=== PATIENT | female | born 1935 | race Caucasian/White ===

== ENCOUNTER → 2016-10-21 | Outpatient (CLI) | payer OTHER ==
[2015-12-30 18:50] VITALS: BP 160/90
[~2016-10-21] MED LIST: ACET-704 PO; ALBU18HF IH; ALPR0.5T PO; ALPR0.5T6 PO; CLON0.2T PO; CYCL5TAB PO; DILT120C2 PO; DOXY100C2 PO; GLIP10TA13 PO; HYDR-2867 PO; HYDR-2868 PO; METO1TAB7 PO; METO50TA2 PO; NYST1000 PO; PRED20TA PO; TIOT18CA IH; Tylenol PM PO
--- NOTE | 2016-10-21 10:47 | RAD ---
Bone Densitometry History: Ovarian failure, tobacco history, steroid use, white female. Findings: Bone Densitometry was performed with dual photon absorption of the lumbar spine and proximal right femur. Lumbar Spine: Bone density is 1.086 g/cm2 for L1-L4. T-score is -0.8. Right Femur: Bone density is 0.697 g/cm2. T-score is -2.5. Impression: 1. Osteoporosis of the right hip. 2. Bone mineral density of lumbar spine appears within normal limits. World Health Organization definition of osteoporosis and osteopenia for women: normal equals T score at or above -1.0 standard deviations; osteopenia equals T score between -1.0 and -2.5 standard deviations; osteoporosis equals T score at or below -2.5 standard deviations.
== END | disposition home or self-care (01) ==
LOC: DXRAD 09:57
PROVIDERS: ATTEND Family Medicine
DX: M81.0 Age-related osteoporosis without current pathological fracture (principal); I10 Essential (primary) hypertension
CPT/HCPCS: 77080

== ENCOUNTER → 2016-10-27 | Outpatient (CLI) | payer OTHER ==
[2015-12-30 18:50] VITALS: BP 160/90
--- NOTE | 2016-10-27 10:03 | RAD ---
Indication assess abdominal aortic aneurysm. Grayscale imaging was performed. The examination was targeted to the abdominal aorta. Note is made of a previous examination 09/17/2015. The proximal and mid abdominal aorta were seen the distal abdominal aorta was obscured by gas. The proximal abdominal aorta is dilated maximally to approximately 3.6 cm. The mid abdominal aorta approaches 3 cm. Again the distal abdominal aorta was obscured. Aneurysmal dilatation of the proximal abdominal aorta. The distal abdominal aorta was obscured. (The previous examination demonstrated dilatation of the distal abdominal aorta to approximately 3.9 cm). If clinically warranted additional evaluation of the aorta could be obtained with CT. IMPRESSION: The distal abdominal aorta was obscured.. Known aneurysm associated with the distal abdominal aorta not well demonstrated on this study.
== END | disposition home or self-care (01) ==
LOC: US 07:37
PROVIDERS: ATTEND Family Medicine
DX: I10 Essential (primary) hypertension (principal); I71.4 Abdominal aortic aneurysm, without rupture
CPT/HCPCS: 76770

== ENCOUNTER 2017-09-14 12:00 | Inpatient (IN) | payer MEDICARE, OTHER ==
[~2017-09-14] VITALS: Ht 149.9 cm; Wt 69.5 kg
[~2017-09-14 12:00] MED LIST changes: +CLON-276 PO; -CLON0.2T PO; -METO50TA2 PO; +METO50TA6 PO
[2017-09-14] MEDS ORDERED: IPRATRPIUM/ALBUTEROL 0.5/2.5MG 3 ML NEBU. NEB ONE (12:15)
[2017-09-14 12:41] LABS: BASO # 0.1 x10^3/uL (0.0-0.2); BASO % 1 % (0-3); EOS # 0.4 x10^3/uL (0.0-0.7); EOS % 4 % (0-3); HEMATOCRIT 39.1 % (36.0-47.0); HEMOGLOBIN 13.2 g/dL (12.0-15.5); LYMPH # 1.7 x10^3/uL (1.0-4.8); LYMPH % 17 % (24-48); MEAN CORPUSCULAR HEMOGLOBIN 31 pg (25-35); MEAN CORPUSCULAR HGB CONC 34 g/dL (31-37); MEAN CORPUSCULAR VOLUME 92 fL (79-100); MONO # 1.2 x10^3/uL (0.0-1.1); MONO % 12 % (0-9); NEUT # 6.7 x10^3uL (1.8-7.7); NEUT % 67 % (31-73); PLATELET COUNT 298 x10^3/uL (140-400); RED BLOOD COUNT 4.27 x10^6/uL (3.50-5.40); WHITE BLOOD COUNT 10.1 x10^3/uL (4.0-11.0)
[2017-09-14 12:55] LABS: ALBUMIN 3.5 g/dL (3.4-5.0); CALCIUM 9.2 mg/dL (8.5-10.1); CREATININE 0.7 mg/dL (0.6-1.0); DIRECT BILIRUBIN 0.1 mg/dL (0.0-0.2); GFR 80.3; POTASSIUM 4.1 mmol/L (3.5-5.1); TOTAL BILIRUBIN 0.3 mg/dL (0.2-1.0)
--- NOTE | 2017-09-14 12:55 | RAD ---
Single view chest 09/14/2017 Clinical indication: Shortness of air. COMPARISON: Two-view chest 08/06/2015, CTA chest 09/10/2015. FINDINGS: Cardiac and mediastinal silhouettes are unremarkable. No pleural effusion, pneumothorax or focal consolidation. IMPRESSION: No acute cardiopulmonary abnormality. Electronically signed by: Ish Neumann MD (09/14/2017 12:52 PM) [id number]
--- NOTE | 2017-09-14 13:12 | EKG ---
[address] [address] Test Date: 2017-09-14 Test Time: 12:14:57 Pat Name: KELLI COBB Department: Room: Gender: F Employee Benefits Insurance Agent: PRAFUL : [id number] Requested By: NORM SHERIFF Order Number: [id number] Reading MD: Measurements Intervals [place] Rate: 89 P: 56 MS: 142 QRS: 18 QRSD: 94 T: 61 QT: 342 QTc: 417 Interpretive Statements SINUS RHYTHM QRS(T) CONTOUR ABNORMALITY CONSIDER INFERIOR MYOCARDIAL DAMAGE POSSIBLY ABNORMAL ECG RI6.01 No previous ECG available for comparison
[2017-09-14] MEDS ORDERED: methylPREDNISolone SOD SUCC PF 125 MG/2 ML VIAL. IV ONE (13:30)
--- NOTE | 2017-09-14 13:33 | PHYS DOC ---
Past History Past Medical History: Anxiety, COPD, Hypertension, Hypothyroid, Other Past Surgical History: Hysterectomy, Other Alcohol Use: None Drug Use: None Adult General Chief Complaint Chief Complaint: SHORTNESS OF BREATH HPI HPI 82-year-old female with a history of high blood pressure and COPD along with diabetes presenting to the emergency department today with worsening shortness of breath. Her shortness of breath is worse with exertion increased when she lays down. It is improved with rest. She denies any pain in her chest or neck. She has a history of COPD and on September 02 on her primary care physician Dr. Macdonald who administered prednisone and antibiotics. She noticed mild improvement with these medications. She denies any chest pain fevers or chills. No specific timing. Baseline o2 of 2l nc. Past medical history high blood pressure, COPD, diabetes Allergies per EMR. Past surgical history: History of hernia repairs and hysterectomy Positive for smoking, negative for drinking or IV drug use. Review of systems is negative for abdominal pain nausea vomiting diaphoresis. She denies polyuria dysuria fevers. All other review of systems is negative unless otherwise noted in history of present illness. ED course: 82-year-old female presenting to the emergency department with worsening shortness of breath. On arrival, vital signs. On examination the patient is alert well-appearing nontoxic appearing. Her work of breathing is mildly increased. Lungs: Wheezing bilaterally with prolonged expiratory phase. Abdomen is soft nondistended nontender palpation without rebound tenderness or guarding. Regular rate and rhythm on cardiac auscultation. No pedal edema. No signs of DVT. Nontender venous system. Otherwise unremarkable exam. EKG obtained by myself and reviewed. Compared to previous on July 282015. Sinus rhythm with a regular rate. ST segments congruent. Not suggestive ACS. Chest x-ray obtained shows no acute cardiopulmonary process. Blood work shows mild hyperglycemia otherwise unremarkable. Troponin negative. Patient was given a nebulizer and IV Solu-Medrol in the emergency department. On reexamination she continues to feel shortness of breath and has increased oxygen requirement of 3. We will admit the patient for nebulizers and IV corticosteroids further evaluation treatment and monitoring. Dr. Macdonald the patient's primary care physician accepts the patient for admission. Review of Systems Review of Systems SEE ABOVE. Current Medications Current Medications Current Medications Medications (Trade) Dose Ordered Sig/Thalia Start Time Stop Time Status Last Admin Dose Admin Albuterol/ Ipratropium (Duoneb) 3 ml 1X ONCE 09/14/17 12:15 09/14/17 12:18 DC 09/14/17 12:29 3 ML Methylprednisolone Sodium Succinate (SOLU-Medrol 125MG VIAL) 125 mg 1X ONCE 09/14/17 13:30 09/14/17 13:31 UNV Allergies Allergies Allergies Coded Allergies Type Severity Reaction Last Updated Verified Penicillins Allergy Intermediate 09/14/17 Yes Pmpdzed-Jum-Mqa Reductase Inhibitor Allergy Unknown 09/14/17 Yes gabapentin Allergy Unknown 09/14/17 Yes mannitol Allergy Unknown 09/14/17 Yes tramadol Allergy Unknown 09/14/17 Yes water for injection,sterile Allergy Unknown 09/14/17 Yes zoledronic acid Allergy Unknown 09/14/17 Yes Physical Exam Physical Exam SEE ABOVE Constitutional: Well developed, well nourished, no acute distress, non-toxic appearance. [] HENT: Normocephalic, atraumatic, bilateral external ears normal, oropharynx moist, no oral exudates, nose normal. [] Eyes: PERRLA, EOMI, conjunctiva normal, no discharge. [] Neck: Normal range of motion, no tenderness, supple, no stridor. [] Cardiovascular:Heart rate regular rhythm, no murmur [] Lungs & Thorax: Wheezing bilaterally. Improved on second examination. Abdomen: Bowel sounds normal, soft, no tenderness, no masses, no pulsatile masses. [] Skin: Warm, dry, no erythema, no rash. [] Back: No tenderness, no CVA tenderness. [] Extremities: No tenderness, no cyanosis, no clubbing, ROM intact, no edema. [] Neurologic: Alert and oriented X 3, normal motor function, normal sensory function, no focal deficits noted. [] Psychologic: Affect normal, judgement normal, mood normal. [] Current Patient Data Vital Signs Vital Signs Date Time Temp Pulse Resp B/P (MAP) Pulse Ox O2 Delivery O2 Flow Rate FiO2 09/14/17 12:29 95 Nasal Cannula 2.0 09/14/17 12:15 98.4 102 24 Lab Results Laboratory Tests Test 09/14/17 12:22 White Blood Count 10.1 x10^3/uL (4.0-11.0) Red Blood Count 4.27 x10^6/uL (3.50-5.40) Hemoglobin 13.2 g/dL (12.0-15.5) Hematocrit 39.1 % (36.0-47.0) Mean Corpuscular Volume 92 fL (79-100) Mean Corpuscular Hemoglobin 31 pg (25-35) Mean Corpuscular Hemoglobin Concent 34 g/dL (31-37) Red Cell Distribution Width 14.0 % (11.5-14.5) Platelet Count 298 x10^3/uL (140-400) Neutrophils (%) (Auto) 67 % (31-73) Lymphocytes (%) (Auto) 17 % (24-48) L Monocytes (%) (Auto) 12 % (0-9) H Eosinophils (%) (Auto) 4 % (0-3) H Basophils (%) (Auto) 1 % (0-3) Neutrophils # (Auto) 6.7 x10^3uL (1.8-7.7) Lymphocytes # (Auto) 1.7 x10^3/uL (1.0-4.8) Monocytes # (Auto) 1.2 x10^3/uL (0.0-1.1) H Eosinophils # (Auto) 0.4 x10^3/uL (0.0-0.7) Basophils # (Auto) 0.1 x10^3/uL (0.0-0.2) Sodium Level 128 mmol/L (136-145) L Potassium Level 4.1 mmol/L (3.5-5.1) Chloride Level 93 mmol/L (98-107) L Carbon Dioxide Level 28 mmol/L (21-32) Anion Gap 7 (6-14) Blood Urea Nitrogen 13 mg/dL (7-20) Creatinine 0.7 mg/dL (0.6-1.0) Estimated GFR (Cockcroft-Gault) 80.3 Glucose Level 151 mg/dL (70-99) H Calcium Level 9.2 mg/dL (8.5-10.1) Total Bilirubin 0.3 mg/dL (0.2-1.0) Direct Bilirubin 0.1 mg/dL (0.0-0.2) Aspartate Amino Transferase (AST) 21 U/L (15-37) Alanine Aminotransferase (ALT) 35 U/L (14-59) Alkaline Phosphatase 105 U/L (46-116) Troponin I Quantitative < 0.017 ng/mL (0-0.055) TG-Sfj-O-Type Natriuretic Peptide 87 pg/mL (0-449) Total Protein 7.0 g/dL (6.4-8.2) Albumin 3.5 g/dL (3.4-5.0) Lipase 96 U/L (73-393) EKG EKG [] Radiology/Procedures Radiology/Procedures [] Course & Med Decision Making Course & Med Decision Making Pertinent Labs and Imaging studies reviewed. (See chart for details) [] Dragon Disclaimer Dragon Disclaimer This electronic medical record was generated, in whole or in part, using a voice recognition dictation system. Departure Departure: Impression: Primary Impression: COPD (chronic obstructive pulmonary disease) Disposition: ADMITTED INPATIENT Admitting Physician: Pramod Macdonald Condition: STABLE Referrals: PRAMOD MACDONALD MD (PCP) NORM SHERIFF MD Sep 14, 2017 13:33
[2017-09-14] MEDS ORDERED: ONDANSETRON PF 4 MG/2 ML VIAL. IV PRN ×2 (14:15→16:30)
[2017-09-14] MEDS ORDERED: IPRATRPIUM/ALBUTEROL 0.5/2.5MG 3 ML NEBU. NEB SCH (16:00)
[2017-09-14] MEDS ORDERED: ALBU18HF IH (16:13)
[2017-09-14] MEDS ORDERED: TIOT4MIS3 IH (16:13)
[2017-09-14] MEDS ORDERED: OXYC-323 PO (16:13)
[2017-09-14] MEDS ORDERED: DILT120C80 PO (16:13)
[2017-09-14] MEDS ORDERED: HYDR12.58 PO (16:13)
[2017-09-14] MEDS ORDERED: HYDR-2869 PO (16:13)
[2017-09-14 16:19] VITALS: BP 152/78
[2017-09-14] MEDS ORDERED: AZITHROMYCIN 250 MG TABLET. PO ONE (16:30)
[2017-09-14] MEDS ORDERED: 0.9 % SODIUM CHLORIDE 10 ML DISP.SYRIN. IV PRN (16:30)
[2017-09-14] MEDS ORDERED: diphenhydrAMINE 50 MG/ML VIAL IV PRN (16:30)
[2017-09-14] MEDS ORDERED: MAG HYDROX/AL HYDROX/SIMETH 30 ML ORAL.SUSP PO PRN (16:30)
[2017-09-14] MEDS ORDERED: DEXTROSE 50% 25 GM / 50ML DISP.SYRIN. IV PRN (16:30)
[2017-09-14] MEDS ORDERED: ELECTROLYTE (NON-ICU) PROTOCOL MC PRN (16:30)
[2017-09-14] MEDS ORDERED: PROMETHAZINE 12.5 MG in IV NORMAL SALINE 50ML 50 ML IV PRN (16:30)
[2017-09-14] MEDS ORDERED: CALCIUM CARBONATE 500 MG TAB.CHEW PO PRN (16:30)
[2017-09-14] MEDS ORDERED: PROCHLORPERAZINE 10 MG/2 ML VIAL. IV PRN (16:30)
--- NOTE | 2017-09-14 16:36 | PDOC1 ---
History of Present Illness Reason for Visit: SOA History of Present Illness Pt recently treated w/ outpatient prednisone and abx for COPD exacerbation. Was feeling better but when off steroids, started to feel worse. Over weekend, increasing SOA and leg cramps. Requiring more O2 than usual (usually wears 2.5 liters). Feeling better after IV solumedrol. Hx of hyperglycemia w/ steroids. Hx of chronic pain, takes chronic opioids. Uses Stiolto. Walks with a walker , lives independently. Denies fever, chest pain, abd pain, n/v, diarrhea, sore throat, earache, vision changes, BENSON, dizziness, rash, extremity weakness/ numbness, or confusion. Chief Complaint: SHORTNESS OF BREATH Allergies: Coded Allergies: Penicillins (Verified Allergy, Intermediate, 09/14/17) Noeeodv-Quh-Xie Reductase Inhibitor (Verified Allergy, Unknown, 09/14/17) gabapentin (Verified Allergy, Unknown, 09/14/17) mannitol (Verified Allergy, Unknown, 09/14/17) tramadol (Verified Allergy, Unknown, 09/14/17) water for injection,sterile (Verified Allergy, Unknown, 09/14/17) zoledronic acid (Verified Allergy, Unknown, 09/14/17) Past Medical History Cardiac: HTN Pulmonary: COPD Past Surgical History: Appendectomy, Cataract Removal (x2), Hernia Repair (x7) , Hysterectomy, Other (Carpal tunnel (left), trigger finger (left)) Past Social History Smoke: Quit (43 pack/year hx, quit 3 years ago) Alcohol: none Drugs: None Lives: Alone Domestic Violence: Neg Review of Systems Review Of Systems Fourteen system , review of systems has been reviewed. See HPI for pertinent positives and negative responses, other heaton all other systems are negative, non pertinent or non contributory Allergies: Coded Allergies: Penicillins (Verified Allergy, Intermediate, 09/14/17) Woqsfos-Wwk-Uni Reductase Inhibitor (Verified Allergy, Unknown, 09/14/17) gabapentin (Verified Allergy, Unknown, 09/14/17) mannitol (Verified Allergy, Unknown, 09/14/17) tramadol (Verified Allergy, Unknown, 09/14/17) water for injection,sterile (Verified Allergy, Unknown, 09/14/17) zoledronic acid (Verified Allergy, Unknown, 09/14/17) Medications Current Medications Albuterol/ Ipratropium (Duoneb) 3 ml 1X ONCE NEB Last administered on at 12:29; Start 09/14/17 at 12:15; Stop 09/14/17 at 12:18; Status DC Methylprednisolone Sodium Succinate (SOLU-Medrol 125MG VIAL) 125 mg 1X ONCE IV Last administered on 09/14/17at 14:08; Start 09/14/17 at 13:30; Stop 09/14/17 at 13:34; Status DC Ondansetron HCl (Zofran) 4 mg PRN Q4HRS PRN IV NAUSEA/VOMITING; Start 09/14/17 at 14:15; Stop 09/15/17 at 14:14 Albuterol/ Ipratropium (Duoneb) 3 ml RTQID NEB Last administered on 09/14/17at 16:12; Start 09/14/17 at 16:00; Stop 09/15/17 at 15:59 Azithromycin (Zithromax) 500 mg 1X ONCE PO ; Start 09/14/17 at 16:30; Stop at 16:31; Status UNV Active Scripts Active Reported Ventolin Hfa Inhaler (Albuterol Sulfate) 18 Gm Hfa.aer.ad 2 Puff IH PRN Q4HRS PRN LAST DOSE GIVEN: DATE: TIME: NEXT DOSE DUE: DATE: TIME: Diltiazem 24HR Cd (Diltiazem Hcl) 120 Mg Cap.er.24h 2 Cap PO DAILY LAST DOSE GIVEN: DATE: TIME: NEXT DOSE DUE: DATE: TIME: Hydralazine Hcl 50 Mg Tablet 1 Tab PO TID LAST DOSE GIVEN: DATE: TIME: NEXT DOSE DUE: DATE: TIME: Percocet 5-325 Mg Tablet (Oxycodone Hcl/Acetaminophen) 1 Each Tablet 0.5 Tab PO Q4HRS PRN LAST DOSE GIVEN: DATE: TIME: NEXT DOSE DUE: DATE: TIME: Stiolto Respimat Inhal [place] (Tiotropium Br/Olodaterol HCl) 4 Gm Mist.inhal 2 Puff IH DAILY LAST DOSE GIVEN: DATE: TIME: NEXT DOSE DUE: DATE: TIME: Hydrochlorothiazide Tablet (Hydrochlorothiazide) 12.5 Mg Tablet 1 Tab PO DAILY LAST DOSE GIVEN: DATE: TIME: NEXT DOSE DUE: DATE: TIME: Alprazolam 0.5 Mg Tablet 1 Tab PO HS LAST DOSE GIVEN: DATE: TIME: NEXT DOSE DUE: DATE: TIME: Xanax (Alprazolam) 0.5 Mg Tablet 0.5 Tab PO DAILY LAST DOSE GIVEN: DATE: TIME: NEXT DOSE DUE: DATE: TIME: Exam Vital Signs Vital Signs Date Time Temp Pulse Resp B/P (MAP) Pulse Ox O2 Delivery O2 Flow Rate FiO2 09/14/17 16:19 98.2 86 24 152/78 (102) 97 Nasal Cannula 2.0 General Appearance: Alert, Oriented X3, Cooperative, No acute distress HEENT: Atraumatic, PERRLA, EOMI, Mucous membr. moist/pink, Other (Neck supple, full ROM, no JVD< no LAD) Respiratory: Other (Resp effort non-labored, bilatera wheezes (expiratory), no crackles) Heart: Regular rate, Normal S1, Normal S2, No murmurs Abdominal: Normal bowel sounds, Soft, No tenderness, No hepatospenomegaly, No masses, Other (obese) Extremities: No edema, Normal pulses, No tenderness/swelling Skin: No rashes, No breakdown Neuro: Normal speech, Strength at 5/5 X4 ext, Normal tone, Sensation intact, Cranial nerves 3-12 NL, Reflexes 2+ Psych/Mental Status: Mental status NL, Mood NL Assessment/Plan Assessment/Plan 1. Acute on chronic respiratory failure: Pt on 4 liters O2, which is up from normal requirement. Comfortable after breathing treatment/steroids. Will continue nebs, IV steroids, abx, O2. Plan for a much longer taper this time. Monitor on telemetry. SSI while on steroids 2. HTN: Continue home BP meds, monitor for worsening on steroids. 3. Acute exacerbation of COPD: Continue current meds. See above. 4. DVT proph: Heparin. 5. Chronic pain: Continue home opioids. 6. Disp: Plan for 2 [place] stay. Pt has complex illness and early d/c could lead to worsening resp failure. COURSE Allergies Coded Allergies Type Severity Reaction Last Updated Verified Penicillins Allergy Intermediate 09/14/17 Yes Gmsiubd-Dmc-Vme Reductase Inhibitor Allergy Unknown 09/14/17 Yes gabapentin Allergy Unknown 09/14/17 Yes mannitol Allergy Unknown 09/14/17 Yes tramadol Allergy Unknown 09/14/17 Yes water for injection,sterile Allergy Unknown 09/14/17 Yes zoledronic acid Allergy Unknown 09/14/17 Yes Laboratory Tests Test 09/14/17 12:22 White Blood Count 10.1 x10^3/uL (4.0-11.0) Red Blood Count 4.27 x10^6/uL (3.50-5.40) Hemoglobin 13.2 g/dL (12.0-15.5) Hematocrit 39.1 % (36.0-47.0) Mean Corpuscular Volume 92 fL (79-100) Mean Corpuscular Hemoglobin 31 pg (25-35) Mean Corpuscular Hemoglobin Concent 34 g/dL (31-37) Red Cell Distribution Width 14.0 % (11.5-14.5) Platelet Count 298 x10^3/uL (140-400) Neutrophils (%) (Auto) 67 % (31-73) Lymphocytes (%) (Auto) 17 % (24-48) Monocytes (%) (Auto) 12 % (0-9) Eosinophils (%) (Auto) 4 % (0-3) Basophils (%) (Auto) 1 % (0-3) Neutrophils # (Auto) 6.7 x10^3uL (1.8-7.7) Lymphocytes # (Auto) 1.7 x10^3/uL (1.0-4.8) Monocytes # (Auto) 1.2 x10^3/uL (0.0-1.1) Eosinophils # (Auto) 0.4 x10^3/uL (0.0-0.7) Basophils # (Auto) 0.1 x10^3/uL (0.0-0.2) Sodium Level 128 mmol/L (136-145) Potassium Level 4.1 mmol/L (3.5-5.1) Chloride Level 93 mmol/L (98-107) Carbon Dioxide Level 28 mmol/L (21-32) Anion Gap 7 (6-14) Blood Urea Nitrogen 13 mg/dL (7-20) Creatinine 0.7 mg/dL (0.6-1.0) Estimated GFR (Cockcroft-Gault) 80.3 Glucose Level 151 mg/dL (70-99) Calcium Level 9.2 mg/dL (8.5-10.1) Total Bilirubin 0.3 mg/dL (0.2-1.0) Direct Bilirubin 0.1 mg/dL (0.0-0.2) Aspartate Amino Transf (AST/SGOT) 21 U/L (15-37) Alanine Aminotransferase (ALT/SGPT) 35 U/L (14-59) Alkaline Phosphatase 105 U/L (46-116) Troponin I Quantitative < 0.017 ng/mL (0-0.055) DG-Xmg-S-Type Natriuretic Peptide 87 pg/mL (0-449) Total Protein 7.0 g/dL (6.4-8.2) Albumin 3.5 g/dL (3.4-5.0) Lipase 96 U/L (73-393) Current Medications Medications (Trade) Dose Ordered Sig/Thalia Route PRN Reason Start Time Stop Time Status Last Admin Dose Admin Albuterol/ Ipratropium (Duoneb) 3 ml 1X ONCE NEB 09/14/17 12:15 09/14/17 12:18 DC 09/14/17 12:29 Methylprednisolone Sodium Succinate (SOLU-Medrol 125MG VIAL) 125 mg 1X ONCE IV 09/14/17 13:30 09/14/17 13:34 DC 09/14/17 14:08 Ondansetron HCl (Zofran) 4 mg PRN Q4HRS PRN IV NAUSEA/VOMITING 09/14/17 14:15 09/15/17 14:14 Albuterol/ Ipratropium (Duoneb) 3 ml RTQID NEB 09/14/17 16:00 09/15/17 15:59 09/14/17 16:12 Azithromycin (Zithromax) 500 mg 1X ONCE PO 09/14/17 16:30 09/14/17 16:31 UNV Vital Signs Date Time Temp Pulse Resp B/P (MAP) Pulse Ox O2 Delivery O2 Flow Rate FiO2 09/14/17 16:19 98.2 86 24 152/78 (102) 97 Nasal Cannula 2.0 Single view chest 09/14/2017 Clinical indication: Shortness of air. COMPARISON: Two-view chest 08/06/2015, CTA chest 09/10/2015. FINDINGS: Cardiac and mediastinal silhouettes are unremarkable. No pleural effusion, pneumothorax or focal consolidation. IMPRESSION: No acute cardiopulmonary abnormality. ADEBAYO MACDONALD MD Sep 14, 2017 16:36
[2017-09-14] MEDS: INSULIN ASPART 300 UNITS/3 ML INSULN.PEN SQ SCH (17:22)
[2017-09-14] MEDS: oxyCODONE/APAP 5/325 1 TAB TABLET PO PRN ×2 (19:17→23:52)
[2017-09-14 19:49] VITALS: BP 152/80
[2017-09-14] MEDS: DOCUSATE SODIUM 100 MG CAPSULE PO SCH (20:03)
[2017-09-14] MEDS: ALPRAZolam 0.5 MG TABLET PO SCH (20:04)
[2017-09-14] MEDS: diphenhydrAMINE HCL 25 MG CAPSULE PO PRN (20:04)
[2017-09-14] MEDS: HEPARIN PF for SUB-Q USE 5,000 UNIT/0.5 ML VIAL. SQ SCH (20:06)
[2017-09-14] MEDS: IPRATRPIUM/ALBUTEROL 0.5/2.5MG 3 ML NEBU. NEB SCH (20:46)
[2017-09-14] MEDS ORDERED: methylPREDNISolone SOD SUCC PF 125 MG/2 ML VIAL. IV SCH (21:00)
[2017-09-14 23:33] VITALS: BP 145/84
[2017-09-15] MEDS: HEPARIN PF for SUB-Q USE 5,000 UNIT/0.5 ML VIAL. SQ SCH ×3 (04:52→20:35)
[2017-09-15 05:31] VITALS: BP 148/82
--- NOTE | 2017-09-15 06:02 | PDOC ---
PROGRESS NOTES Assessment 1. Acute on chronic respiratory failure: Continue IV steroids, pt improving. Will taper to prednisone by tomorrow. Cont abx, nebs. Get nebulizer for discharge to home, pt does not have one. Cont O2. 2. HTN: Continue home BP meds, monitor for worsening on steroids. 3. Acute exacerbation of COPD: Continue current meds. See above. 4. DVT proph: Heparin. 5. Chronic pain: Continue home opioids, pt stable without side effects. 6. Disp: Pt improving. Hopeful for d/c tomorrow if all goes well. Problems: Plan of Care: see other orders Subjective Pt states she is feeling better. Took a shower this morning. Now needing a pain pill, as standing for the shower caused her legs to hurt. Denies fever, hemoptysis, chest pain, rash, diarrhea, n/v, or dizziness. Objective Vital Signs Date Time Temp Pulse Resp B/P (MAP) Pulse Ox O2 Delivery O2 Flow Rate FiO2 09/15/17 05:31 97.6 86 18 148/82 (104) 96 Nasal Cannula 2.0 Intake and Output 09/15/17 07:00 Intake Total 1330 ml Output Total 1150 ml Balance 180 ml Intake Oral 1330 ml Output Urine Total 1150 ml Abdomen: Normal bowel sounds, Soft, No tenderness, No masses Heart: Regular rate, Normal S1, Normal S2, No murmurs Extremities: No edema, Normal pulses, No tenderness/swelling General: Alert, Oriented X3, Cooperative, No acute distress HEENT: PERRLA, EOMI, Mucous membr. moist/pink Lungs: Other (Scattered expiratory wheezes, resp effort non-labored, no crackles, no rhonchi) Neck: No JVD, No LAD Neuro: Normal speech, Normal tone, Cranial nerves 3-12 NL Psych/Mental Status: Mental status NL, Mood NL Skin: No rashes, No breakdown Review of Relevant I have reviewed the following items lidya (where applicable) has been applied. Labs Laboratory Tests Test 09/14/17 12:22 09/14/17 17:07 09/14/17 17:50 09/14/17 20:29 White Blood Count 10.1 x10^3/uL (4.0-11.0) Red Blood Count 4.27 x10^6/uL (3.50-5.40) Hemoglobin 13.2 g/dL (12.0-15.5) Hematocrit 39.1 % (36.0-47.0) Mean Corpuscular Volume 92 fL (79-100) Mean Corpuscular Hemoglobin 31 pg (25-35) Mean Corpuscular Hemoglobin Concent 34 g/dL (31-37) Red Cell Distribution Width 14.0 % (11.5-14.5) Platelet Count 298 x10^3/uL (140-400) Neutrophils (%) (Auto) 67 % (31-73) Lymphocytes (%) (Auto) 17 % (24-48) Monocytes (%) (Auto) 12 % (0-9) Eosinophils (%) (Auto) 4 % (0-3) Basophils (%) (Auto) 1 % (0-3) Neutrophils # (Auto) 6.7 x10^3uL (1.8-7.7) Lymphocytes # (Auto) 1.7 x10^3/uL (1.0-4.8) Monocytes # (Auto) 1.2 x10^3/uL (0.0-1.1) Eosinophils # (Auto) 0.4 x10^3/uL (0.0-0.7) Basophils # (Auto) 0.1 x10^3/uL (0.0-0.2) Sodium Level 128 mmol/L (136-145) Potassium Level 4.1 mmol/L (3.5-5.1) Chloride Level 93 mmol/L (98-107) Carbon Dioxide Level 28 mmol/L (21-32) Anion Gap 7 (6-14) Blood Urea Nitrogen 13 mg/dL (7-20) Creatinine 0.7 mg/dL (0.6-1.0) Estimated GFR (Cockcroft-Gault) 80.3 Glucose Level 151 mg/dL (70-99) Calcium Level 9.2 mg/dL (8.5-10.1) Total Bilirubin 0.3 mg/dL (0.2-1.0) Direct Bilirubin 0.1 mg/dL (0.0-0.2) Aspartate Amino Transf (AST/SGOT) 21 U/L (15-37) Alanine Aminotransferase (ALT/SGPT) 35 U/L (14-59) Alkaline Phosphatase 105 U/L (46-116) Troponin I Quantitative < 0.017 ng/mL (0-0.055) < 0.017 ng/mL (0-0.055) DH-Mtc-P-Type Natriuretic Peptide 87 pg/mL (0-449) Total Protein 7.0 g/dL (6.4-8.2) Albumin 3.5 g/dL (3.4-5.0) Lipase 96 U/L (73-393) Glucose (Fingerstick) 205 mg/dL (70-99) 227 mg/dL (70-99) Test 09/14/17 20:55 Troponin I Quantitative < 0.017 ng/mL (0-0.055) Medications Current Medications Albuterol/ Ipratropium (Duoneb) 3 ml 1X ONCE NEB Last administered on at 12:29; Start 09/14/17 at 12:15; Stop 09/14/17 at 12:18; Status DC Methylprednisolone Sodium Succinate (SOLU-Medrol 125MG VIAL) 125 mg 1X ONCE IV Last administered on 09/14/17at 14:08; Start 09/14/17 at 13:30; Stop 09/14/17 at 13:34; Status DC Ondansetron HCl (Zofran) 4 mg PRN Q4HRS PRN IV NAUSEA/VOMITING; Start 09/14/17 at 14:15; Stop 09/15/17 at 14:14; Status Cancel Albuterol/ Ipratropium (Duoneb) 3 ml RTQID NEB Last administered on 09/14/17at 16:12; Start 09/14/17 at 16:00; Stop 09/14/17 at 18:01; Status DC Sodium Chloride (Normal Saline Flush) 3 ml PRN DAILY PRN IV AFTER MEDS AND BLOOD DRAWS; Start 09/14/17 at 16:30 Docusate Sodium (Colace) 100 mg BID PO Last administered on 09/14/17at 20:03; Start 09/14/17 at 21:00 Al Hydroxide/Mg Hydroxide (Mylanta Plus Xs) 30 ml PRN Q3HRS PRN PO HEARTBURN / GAS; Start 09/14/17 at 16:30 Calcium Carbonate/ Glycine (Tums) 500 mg PRN Q3HRS PRN PO HEARTBURN / GAS; Start 09/14/17 at 16:30 Info (Non-Icu Electrolyte Protocol) 1 ea CONT PRN PRN MC SEE COMMENTS; Start at 16:30 Heparin Sodium (Porcine) (Heparin Sq) 5,000 unit Q8HRS SQ Last administered on 09/14/17at 20:06; Start 09/14/17 at 22:00 Prochlorperazine Edisylate (Compazine) 10 mg PRN Q4HRS PRN IV NAUSEA/VOMITING; Start 09/14/17 at 16:30 Promethazine HCl 12.5 mg/Sodium Chloride 50.5 ml @ 100 mls/hr PRN Q6HRS PRN IV NAUSEA/VOMITING; Start 09/14/17 at 16:30 Ondansetron HCl (Zofran) 4 mg PRN Q8HRS PRN IV NAUSEA/VOMITING; Start 09/14/17 at 16:30 Diphenhydramine HCl (Benadryl) 25 mg PRN Q6HRS PRN PO SEE COMMENTS Last administered on 09/14/17at 20:04; Start 09/14/17 at 16:30 Diphenhydramine HCl (Benadryl) 25 mg PRN Q6HRS PRN IV SEE COMMENTS; Start 09/14 at 16:30 Insulin Aspart (NovoLOG) 0-5 UNITS TIDAC SQ Last administered on 09/14/17at 17: 22; Start 09/14/17 at 16:30 Dextrose 12.5 gm PRN Q15MIN PRN IV SEE COMMENTS; Start 09/14/17 at 16:30 Methylprednisolone Sodium Succinate (SOLU-Medrol 125MG VIAL) 125 mg Q12HR IV Last administered on 09/14/17at 20:03; Start 09/14/17 at 21:00 Albuterol/ Ipratropium (Duoneb) 3 ml RTQID NEB Last administered on 09/14/17at 20:46; Start 09/14/17 at 20:00 Azithromycin (Zithromax) 500 mg 1X ONCE PO Last administered on 09/14/17at 17: 06; Start 09/14/17 at 16:30; Stop 09/14/17 at 16:34; Status DC Alprazolam (Xanax) 0.5 mg HS PO Last administered on 09/14/17at 20:04; Start at 21:00 Alprazolam (Xanax) 0.25 mg DAILY PO ; Start 09/15/17 at 09:00 Diltiazem HCl (Cardizem 24hr Cd) 240 mg DAILY PO ; Start 09/15/17 at 09:00 Hydralazine HCl (Apresoline) 50 mg TID PO Last administered on 09/14/17at 20:04 ; Start 09/14/17 at 21:00 Oxycodone/ Acetaminophen (Percocet 5/325) 0.5 tab PRN Q4HRS PRN PO PAIN Last administered on 09/14/17at 23:52; Start 09/14/17 at 18:00 Hydroxyzine HCl (Atarax) 25 mg PRN QHS PRN PO ITCHING; Start 09/14/17 at 18:00 Active Scripts Active Reported Ventolin Hfa Inhaler (Albuterol Sulfate) 18 Gm Hfa.aer.ad 2 Puff IH PRN Q4HRS PRN LAST DOSE GIVEN: DATE: TIME: NEXT DOSE DUE: DATE: TIME: Diltiazem 24HR Cd (Diltiazem Hcl) 120 Mg Cap.er.24h 2 Cap PO DAILY LAST DOSE GIVEN: DATE: TIME: NEXT DOSE DUE: DATE: TIME: Hydralazine Hcl 50 Mg Tablet 1 Tab PO TID LAST DOSE GIVEN: DATE: TIME: NEXT DOSE DUE: DATE: TIME: Percocet 5-325 Mg Tablet (Oxycodone Hcl/Acetaminophen) 1 Each Tablet 0.5 Tab PO Q4HRS PRN LAST DOSE GIVEN: DATE: TIME: NEXT DOSE DUE: DATE: TIME: Stiolto Respimat Inhal [place] (Tiotropium Br/Olodaterol HCl) 4 Gm Mist.inhal 2 Puff IH DAILY LAST DOSE GIVEN: DATE: TIME: NEXT DOSE DUE: DATE: TIME: Hydrochlorothiazide Tablet (Hydrochlorothiazide) 12.5 Mg Tablet 1 Tab PO DAILY LAST DOSE GIVEN: DATE: TIME: NEXT DOSE DUE: DATE: TIME: Alprazolam 0.5 Mg Tablet 1 Tab PO HS LAST DOSE GIVEN: DATE: TIME: NEXT DOSE DUE: DATE: TIME: Xanax (Alprazolam) 0.5 Mg Tablet 0.5 Tab PO DAILY LAST DOSE GIVEN: DATE: TIME: NEXT DOSE DUE: DATE: TIME: Vitals/I & O Vital Sign - Last 24 Hours 09/14/17 09/14/17 09/14/17 09/14/17 12:15 12:29 12:36 13:06 Temp 98.4 Pulse 102 91 89 Resp 24 24 24 B/P (MAP) 138/73 (94) 139/70 (93) Pulse Ox 94 95 91 87 O2 Delivery Nasal Cannula Nasal Cannula Nasal Cannula Nasal Cannula O2 Flow Rate 3.0 2.0 3.0 3.0 09/14/17 09/14/17 09/14/17 09/14/17 14:52 15:40 16:12 16:19 Temp 98.2 Pulse 99 91 86 Resp 20 22 24 B/P (MAP) 140/77 (98) 152/78 (102) Pulse Ox 93 96 97 97 O2 Delivery Nasal Cannula Nasal Cannula Nasal Cannula O2 Flow Rate 3.0 3.0 2.0 2.0 09/14/17 09/14/17 09/14/17 09/14/17 17:37 19:15 19:17 19:49 Temp 98.7 Pulse 102 Resp 20 22 B/P (MAP) 152/80 (104) Pulse Ox 96 O2 Delivery Nasal Cannula Nasal Cannula Nasal Cannula Nasal Cannula O2 Flow Rate 3.0 3.0 3.0 2.0 09/14/17 09/14/17 09/14/17 09/14/17 20:04 20:20 20:49 23:33 Temp 97.9 Pulse 102 104 Resp 20 20 B/P (MAP) 152/80 145/84 (104) Pulse Ox 97 96 O2 Delivery Nasal Cannula Nasal Cannula O2 Flow Rate 2.5 2.0 09/14/17 09/15/17 09/15/17 09/15/17 23:52 00:55 05:28 05:31 Temp 97.6 Pulse 86 Resp 18 18 B/P (MAP) 148/82 (104) Pulse Ox 96 96 O2 Delivery Nasal Cannula Nasal Cannula Nasal Cannula Nasal Cannula O2 Flow Rate 3.0 3.0 2.5 2.0 Intake and Output 09/14/17 09/14/17 09/15/17 15:00 23:00 07:00 Intake Total 630 ml 700 ml Output Total 600 ml 550 ml Balance 30 ml 150 ml ADEBAYO MACDONALD MD Sep 15, 2017 06:02
[2017-09-15] MEDS: oxyCODONE/APAP 5/325 1 TAB TABLET PO PRN ×3 (06:03→20:28)
[2017-09-15] MEDS: IPRATRPIUM/ALBUTEROL 0.5/2.5MG 3 ML NEBU. NEB SCH ×4 (06:05→22:33)
[2017-09-15 06:26] LABS: CALCIUM 8.8 mg/dL (8.5-10.1); GFR 53.2; POTASSIUM 4.4 mmol/L (3.5-5.1)
[2017-09-15 06:31] LABS: BASO % 0 % (0-3); EOS % 0 % (0-3); HEMATOCRIT 37.3 % (36.0-47.0); HEMOGLOBIN 12.8 g/dL (12.0-15.5); LYMPH # 0.9 x10^3/uL (1.0-4.8); LYMPH % 9 % (24-48); MEAN CORPUSCULAR HEMOGLOBIN 31 pg (25-35); MEAN CORPUSCULAR HGB CONC 34 g/dL (31-37); MEAN CORPUSCULAR VOLUME 91 fL (79-100); MONO # 0.1 x10^3/uL (0.0-1.1); MONO % 1 % (0-9); NEUT # 9.1 x10^3uL (1.8-7.7); NEUT % 90 % (31-73); PLATELET COUNT 298 x10^3/uL (140-400); RED BLOOD COUNT 4.12 x10^6/uL (3.50-5.40); RED CELL DISTRIBUTION WIDTH 13.7 % (11.5-14.5); WHITE BLOOD COUNT 10.1 x10^3/uL (4.0-11.0)
[2017-09-15] MEDS: IV NORMAL SALINE 1,000ML 1,000 ML IV SCH ×2 (07:20→17:47)
[2017-09-15] MEDS: methylPREDNISolone SOD SUCC PF 125 MG/2 ML VIAL. IV SCH (08:17)
[2017-09-15] MEDS: DOCUSATE SODIUM 100 MG CAPSULE PO SCH ×2 (08:20→20:28)
[2017-09-15] MEDS: ALPRAZolam 0.25 MG TABLET PO SCH (08:21)
[2017-09-15] MEDS: INSULIN ASPART 300 UNITS/3 ML INSULN.PEN SQ SCH ×3 (08:31→17:52)
[2017-09-15 10:42] VITALS: BP 154/82
[2017-09-15] MEDS ORDERED: BENZOCAINE/MENTHOL LOZNGE 18'S BOX. PO PRN (11:45)
[2017-09-15 13:18] LABS: CALCIUM 8.5 mg/dL (8.5-10.1); GFR 53.2; POTASSIUM 3.8 mmol/L (3.5-5.1)
[2017-09-15 14:20] VITALS: BP 133/71
[2017-09-15 19:50] VITALS: BP 150/76
[2017-09-15] MEDS: hydrOXYzine HCL 25 MG TABLET PO PRN (20:28)
[2017-09-15] MEDS: ALPRAZolam 0.5 MG TABLET PO SCH (20:29)
[2017-09-15] MEDS: diphenhydrAMINE HCL 25 MG CAPSULE PO PRN (20:29)
[2017-09-15 23:22] VITALS: BP 146/87
[2017-09-16] MEDS: HEPARIN PF for SUB-Q USE 5,000 UNIT/0.5 ML VIAL. SQ SCH ×3 (06:00→20:39)
[2017-09-16] MEDS: IPRATRPIUM/ALBUTEROL 0.5/2.5MG 3 ML NEBU. NEB SCH ×4 (06:02→21:26)
[2017-09-16 06:29] VITALS: BP 145/83
[2017-09-16 06:59] LABS: CREATININE 0.8 mg/dL (0.6-1.0); GFR 68.8; POTASSIUM 4.1 mmol/L (3.5-5.1)
[2017-09-16] MEDS: DOCUSATE SODIUM 100 MG CAPSULE PO SCH ×2 (08:20→20:36)
[2017-09-16] MEDS: methylPREDNISolone SOD SUCC PF 125 MG/2 ML VIAL. IV SCH (08:20)
[2017-09-16] MEDS: ALPRAZolam 0.25 MG TABLET PO SCH (08:23)
[2017-09-16] MEDS: INSULIN ASPART 300 UNITS/3 ML INSULN.PEN SQ SCH ×3 (08:36→16:57)
[2017-09-16 11:13] VITALS: BP 136/78
--- NOTE | 2017-09-16 13:15 | PDOC ---
PROGRESS NOTES Assessment . Acute on chronic respiratory failure: Continue IV steroids, nebs, abx. Taper to prednisone at d/c. Get nebulizer for discharge to home, pt does not have one. Cont O2. Pt wishes to change O2 to same company as nebulizer. Check BNP and CXR today, concern for excess fluid intake, 3 liters intake yesterday. 2. HTN: Continue home BP meds, monitor for worsening on steroids. 3. Acute exacerbation of COPD: Continue current meds. See above. 4. DVT proph: Heparin. 5. Chronic pain: Continue home opioids, pt stable without side effects. 6. Disp: Pt feeling worse today, more SOA, denies chest pain or fever. Very wheezy on exam. Will check CXR and BNP. Diurese gently. Monitor Na/K+. Give 40 meq KCL x 1. Problems: Plan of Care: see other orders Subjective Pt states she slept "very well" last night with the Vistaril. Unfortunately, she feels a little more SOA today. Pt is still on IVF, they were not stopped yesterday evening. Pt eating well. Voiding ok. Denies fever, chest pain, sputum production, rash, diarrhea, or n/v. Objective Vital Signs Date Time Temp Pulse Resp B/P (MAP) Pulse Ox O2 Delivery O2 Flow Rate FiO2 09/16/17 11:13 98.0 100 18 136/78 (97) 95 Nasal Cannula 2.5 Intake and Output 09/16/17 07:00 Intake Total 3038.52 ml Balance 3038.52 ml Intake Oral 860 ml IV Total 2178.52 ml # Voids 5 Abdomen: Soft, No tenderness, No hepatospenomegaly, No masses Heart: Regular rate, Normal S1, Normal S2, No murmurs Extremities: Normal pulses, No tenderness/swelling, Other (Trace BLE edema) General: Alert, Oriented X3, Cooperative, mild distress HEENT: PERRLA, EOMI, Mucous membr. moist/pink Lungs: Other (Slightly tachypneic, no retractions. Diffuse insp/exp wheezes. ) Neck: No JVD Neuro: Normal speech, Normal tone, Cranial nerves 3-12 NL Psych/Mental Status: Mental status NL, Mood NL Skin: No rashes, No breakdown Review of Relevant I have reviewed the following items lidya (where applicable) has been applied. Labs Laboratory Tests Test 09/14/17 17:07 09/14/17 17:50 09/14/17 20:29 09/14/17 20:55 Glucose (Fingerstick) 205 mg/dL (70-99) 227 mg/dL (70-99) Troponin I Quantitative < 0.017 ng/mL (0-0.055) < 0.017 ng/mL (0-0.055) Test 09/15/17 05:35 09/15/17 07:36 09/15/17 11:40 09/15/17 13:00 White Blood Count 10.1 x10^3/uL (4.0-11.0) Red Blood Count 4.12 x10^6/uL (3.50-5.40) Hemoglobin 12.8 g/dL (12.0-15.5) Hematocrit 37.3 % (36.0-47.0) Mean Corpuscular Volume 91 fL (79-100) Mean Corpuscular Hemoglobin 31 pg (25-35) Mean Corpuscular Hemoglobin Concent 34 g/dL (31-37) Red Cell Distribution Width 13.7 % (11.5-14.5) Platelet Count 298 x10^3/uL (140-400) Neutrophils (%) (Auto) 90 % (31-73) Lymphocytes (%) (Auto) 9 % (24-48) Monocytes (%) (Auto) 1 % (0-9) Eosinophils (%) (Auto) 0 % (0-3) Basophils (%) (Auto) 0 % (0-3) Neutrophils # (Auto) 9.1 x10^3uL (1.8-7.7) Lymphocytes # (Auto) 0.9 x10^3/uL (1.0-4.8) Monocytes # (Auto) 0.1 x10^3/uL (0.0-1.1) Eosinophils # (Auto) 0.0 x10^3/uL (0.0-0.7) Basophils # (Auto) 0.0 x10^3/uL (0.0-0.2) Sodium Level 125 mmol/L (136-145) 127 mmol/L (136-145) Potassium Level 4.4 mmol/L (3.5-5.1) 3.8 mmol/L (3.5-5.1) Chloride Level 89 mmol/L (98-107) 89 mmol/L (98-107) Carbon Dioxide Level 27 mmol/L (21-32) 26 mmol/L (21-32) Anion Gap 9 (6-14) 12 (6-14) Blood Urea Nitrogen 19 mg/dL (7-20) 19 mg/dL (7-20) Creatinine 1.0 mg/dL (0.6-1.0) 1.0 mg/dL (0.6-1.0) Estimated GFR (Cockcroft-Gault) 53.2 53.2 Glucose Level 212 mg/dL (70-99) 295 mg/dL (70-99) Calcium Level 8.8 mg/dL (8.5-10.1) 8.5 mg/dL (8.5-10.1) Glucose (Fingerstick) 228 mg/dL (70-99) 245 mg/dL (70-99) Test 09/15/17 16:45 09/15/17 20:34 09/16/17 06:00 09/16/17 07:23 Glucose (Fingerstick) 265 mg/dL (70-99) 233 mg/dL (70-99) 206 mg/dL (70-99) Sodium Level 134 mmol/L (136-145) Potassium Level 4.1 mmol/L (3.5-5.1) Chloride Level 98 mmol/L (98-107) Carbon Dioxide Level 29 mmol/L (21-32) Anion Gap 7 (6-14) Blood Urea Nitrogen 16 mg/dL (7-20) Creatinine 0.8 mg/dL (0.6-1.0) Estimated GFR (Cockcroft-Gault) 68.8 Glucose Level 183 mg/dL (70-99) Calcium Level 8.0 mg/dL (8.5-10.1) Test 09/16/17 11:21 Glucose (Fingerstick) 236 mg/dL (70-99) Medications Current Medications Albuterol/ Ipratropium (Duoneb) 3 ml 1X ONCE NEB Last administered on at 12:29; Start 09/14/17 at 12:15; Stop 09/14/17 at 12:18; Status DC Methylprednisolone Sodium Succinate (SOLU-Medrol 125MG VIAL) 125 mg 1X ONCE IV Last administered on 09/14/17at 14:08; Start 09/14/17 at 13:30; Stop 09/14/17 at 13:34; Status DC Ondansetron HCl (Zofran) 4 mg PRN Q4HRS PRN IV NAUSEA/VOMITING; Start 09/14/17 at 14:15; Stop 09/15/17 at 14:14; Status Cancel Albuterol/ Ipratropium (Duoneb) 3 ml RTQID NEB Last administered on 09/14/17at 16:12; Start 09/14/17 at 16:00; Stop 09/14/17 at 18:01; Status DC Sodium Chloride (Normal Saline Flush) 3 ml PRN DAILY PRN IV AFTER MEDS AND BLOOD DRAWS; Start 09/14/17 at 16:30 Docusate Sodium (Colace) 100 mg BID PO Last administered on 09/16/17at 08:20; Start 09/14/17 at 21:00 Al Hydroxide/Mg Hydroxide (Mylanta Plus Xs) 30 ml PRN Q3HRS PRN PO HEARTBURN / GAS; Start 09/14/17 at 16:30 Calcium Carbonate/ Glycine (Tums) 500 mg PRN Q3HRS PRN PO HEARTBURN / GAS; Start 09/14/17 at 16:30 Info (Non-Icu Electrolyte Protocol) 1 ea CONT PRN PRN MC SEE COMMENTS; Start at 16:30 Heparin Sodium (Porcine) (Heparin Sq) 5,000 unit Q8HRS SQ Last administered on 09/15/17at 20:35; Start 09/14/17 at 22:00 Prochlorperazine Edisylate (Compazine) 10 mg PRN Q4HRS PRN IV NAUSEA/VOMITING; Start 09/14/17 at 16:30 Promethazine HCl 12.5 mg/Sodium Chloride 50.5 ml @ 100 mls/hr PRN Q6HRS PRN IV NAUSEA/VOMITING; Start 09/14/17 at 16:30 Ondansetron HCl (Zofran) 4 mg PRN Q8HRS PRN IV NAUSEA/VOMITING; Start 09/14/17 at 16:30 Diphenhydramine HCl (Benadryl) 25 mg PRN Q6HRS PRN PO SEE COMMENTS Last administered on 09/15/17at 20:29; Start 09/14/17 at 16:30 Diphenhydramine HCl (Benadryl) 25 mg PRN Q6HRS PRN IV SEE COMMENTS; Start 09/14 at 16:30 Insulin Aspart (NovoLOG) 0-5 UNITS TIDAC SQ Last administered on 09/16/17at 12: 23; Start 09/14/17 at 16:30 Dextrose 12.5 gm PRN Q15MIN PRN IV SEE COMMENTS; Start 09/14/17 at 16:30 Methylprednisolone Sodium Succinate (SOLU-Medrol 125MG VIAL) 125 mg Q12HR IV Last administered on 09/14/17at 20:03; Start 09/14/17 at 21:00; Stop 09/15/17 at 06:03; Status DC Albuterol/ Ipratropium (Duoneb) 3 ml RTQID NEB Last administered on 09/16/17at 10:47; Start 09/14/17 at 20:00 Azithromycin (Zithromax) 500 mg 1X ONCE PO Last administered on 09/14/17at 17: 06; Start 09/14/17 at 16:30; Stop 09/14/17 at 16:34; Status DC Alprazolam (Xanax) 0.5 mg HS PO Last administered on 09/15/17 20:29; Start at 21:00 Alprazolam (Xanax) 0.25 mg DAILY PO Last administered on 09/16/17at 08:23; Start 09/15/17 at 09:00 Diltiazem HCl (Cardizem 24hr Cd) 240 mg DAILY PO Last administered on at 08:20; Start 09/15/17 at 09:00 Hydralazine HCl (Apresoline) 50 mg TID PO Last administered on 09/16/17at 08:21 ; Start 09/14/17 at 21:00 Oxycodone/ Acetaminophen (Percocet 5/325) 0.5 tab PRN Q4HRS PRN PO PAIN Last administered on 09/15/17at 20:28; Start 09/14/17 at 18:00 Hydroxyzine HCl (Atarax) 25 mg PRN QHS PRN PO ITCHING Last administered on 3/20 /18at 20:28; Start 09/14/17 at 18:00 Methylprednisolone Sodium Succinate (SOLU-Medrol 125MG VIAL) 125 mg DAILY IV Last administered on 09/16/17at 08:20; Start 09/15/17 at 09:00 Sodium Chloride 1,000 ml @ 100 mls/hr Q10H IV Last administered on 09/15/17at 17:47; Start 09/15/17 at 07:00; Stop 09/15/17 at 17:01; Status DC Throat Lozenges (Cepacol Sore Throat Lozenge) 1 [place]elin PRN Q2HR PRN PO SORE THROAT Last administered on 09/15/17at 12:11; Start 09/15/17 at 11:45 Active Scripts Active Reported Ventolin Hfa Inhaler (Albuterol Sulfate) 18 Gm Hfa.aer.ad 2 Puff IH PRN Q4HRS PRN LAST DOSE GIVEN: DATE: TIME: NEXT DOSE DUE: DATE: TIME: Diltiazem 24HR Cd (Diltiazem Hcl) 120 Mg Cap.er.24h 2 Cap PO DAILY LAST DOSE GIVEN: DATE: TIME: NEXT DOSE DUE: DATE: TIME: Hydralazine Hcl 50 Mg Tablet 1 Tab PO TID LAST DOSE GIVEN: DATE: TIME: NEXT DOSE DUE: DATE: TIME: Percocet 5-325 Mg Tablet (Oxycodone Hcl/Acetaminophen) 1 Each Tablet 0.5 Tab PO Q4HRS PRN LAST DOSE GIVEN: DATE: TIME: NEXT DOSE DUE: DATE: TIME: Stiolto Respimat Inhal [place] (Tiotropium Br/Olodaterol HCl) 4 Gm Mist.inhal 2 Puff IH DAILY LAST DOSE GIVEN: DATE: TIME: NEXT DOSE DUE: DATE: TIME: Hydrochlorothiazide Tablet (Hydrochlorothiazide) 12.5 Mg Tablet 1 Tab PO DAILY LAST DOSE GIVEN: DATE: TIME: NEXT DOSE DUE: DATE: TIME: Alprazolam 0.5 Mg Tablet 1 Tab PO HS LAST DOSE GIVEN: DATE: TIME: NEXT DOSE DUE: DATE: TIME: Xanax (Alprazolam) 0.5 Mg Tablet 0.5 Tab PO DAILY LAST DOSE GIVEN: DATE: TIME: NEXT DOSE DUE: DATE: TIME: Vitals/I & O Vital Sign - Last 24 Hours 09/15/17 09/15/17 09/15/17 09/15/17 14:17 14:18 14:20 15:40 Temp 98.1 Pulse 98 98 Resp 20 B/P (MAP) 133/71 133/71 (91) Pulse Ox 95 95 95 O2 Delivery Nasal Cannula Nasal Cannula O2 Flow Rate 3.0 2.5 09/15/17 09/15/17 09/15/17 09/15/17 16:03 19:15 19:50 20:25 Temp 98.2 Pulse 103 Resp 19 B/P (MAP) 150/76 (100) Pulse Ox 97 96 95 O2 Delivery Nasal Cannula Nasal Cannula Nasal Cannula O2 Flow Rate 3.0 3.0 2.0 09/15/17 09/15/17 09/15/17 09/15/17 20:28 20:29 21:30 23:22 Temp 98.1 Pulse 103 102 Resp 20 18 20 B/P (MAP) 150/76 146/87 (106) Pulse Ox 96 O2 Delivery Nasal Cannula Nasal Cannula O2 Flow Rate 3.0 3.0 09/16/17 09/16/17 09/16/17 09/16/17 05:41 06:29 08:20 08:21 Temp 97.4 Pulse 97 97 97 Resp 19 B/P (MAP) 145/83 (103) 145/83 145/83 Pulse Ox 95 97 O2 Delivery Nasal Cannula O2 Flow Rate 2.0 09/16/17 09/16/17 10:47 11:13 Temp 98.0 Pulse 100 Resp 18 B/P (MAP) 136/78 (97) Pulse Ox 98 95 O2 Delivery Nasal Cannula Nasal Cannula O2 Flow Rate 2.0 2.5 Intake and Output 09/15/17 09/15/17 09/16/17 15:00 23:00 07:00 Intake Total 120 ml 1220.52 ml 1698 ml Balance 120 ml 1220.52 ml 1698 ml ADEBAYO MACDONALD MD Sep 16, 2017 13:15
[2017-09-16] MEDS ORDERED: FUROSEMIDE 40 MG/4 ML VIAL IVP ONE (13:30)
[2017-09-16] MEDS ORDERED: POTASSIUM CHLORIDE 20 MEQ TABLET.ER. PO ONE (13:30)
[2017-09-16 13:45] VITALS: BP 161/85
--- NOTE | 2017-09-16 14:02 | RAD ---
EXAM: Chest, 2 views. HISTORY: Shortness of breath. COMPARISON: 09/14/2017 FINDINGS: Frontal and lateral views of the chest are obtained. There is mild diffuse increased interstitial opacity. There is no consolidation, effusion or pneumothorax. The heart is upper normal in size. There is a tortuous thoracic aorta. There are chronic vertebral compression fractures with vertebroplasty changes. IMPRESSION: 1. Mild diffuse increased interstitial opacity. This may be due to trace congestion. 2. No consolidated pneumonia. Electronically signed by: Seble Majano MD (09/16/2017 1:59 PM) [place] [id number]
[2017-09-16 19:43] VITALS: BP 139/82
[2017-09-16] MEDS: hydrOXYzine HCL 25 MG TABLET PO PRN (20:35)
[2017-09-16] MEDS: ALPRAZolam 0.5 MG TABLET PO SCH (20:35)
[2017-09-16] MEDS: diphenhydrAMINE HCL 25 MG CAPSULE PO PRN (20:35)
[2017-09-16] MEDS: oxyCODONE/APAP 5/325 1 TAB TABLET PO PRN (20:36)
[2017-09-16 23:09] VITALS: BP 135/89
[2017-09-17] MEDS: oxyCODONE/APAP 5/325 1 TAB TABLET PO PRN (04:29)
[2017-09-17 05:01] VITALS: BP 150/87
[2017-09-17] MEDS: IPRATRPIUM/ALBUTEROL 0.5/2.5MG 3 ML NEBU. NEB SCH ×4 (05:55→21:24)
[2017-09-17] MEDS: HEPARIN PF for SUB-Q USE 5,000 UNIT/0.5 ML VIAL. SQ SCH ×3 (06:00→20:40)
[2017-09-17 07:26] LABS: CALCIUM 8.1 mg/dL (8.5-10.1); CREATININE 0.9 mg/dL (0.6-1.0); GFR 60.1; POTASSIUM 4.4 mmol/L (3.5-5.1)
[2017-09-17] MEDS: ALPRAZolam 0.25 MG TABLET PO SCH (08:11)
[2017-09-17] MEDS: DOCUSATE SODIUM 100 MG CAPSULE PO SCH ×2 (08:11→20:33)
[2017-09-17] MEDS: methylPREDNISolone SOD SUCC PF 125 MG/2 ML VIAL. IV SCH (08:12)
[2017-09-17] MEDS: INSULIN ASPART 300 UNITS/3 ML INSULN.PEN SQ SCH ×3 (08:17→17:22)
[2017-09-17] MEDS ORDERED: IOHEXOL 300 MG/ML 75 ML VIAL. IV ONE ×2 (09:00→11:30)
--- NOTE | 2017-09-17 09:03 | PDOC ---
PROGRESS NOTES Diagnosis Problem Problems Medical Problems: (1) COPD (chronic obstructive pulmonary disease) Status: Acute Assessment 1. Acute on chronic respiratory failure: Continue IV steroids, nebs, abx. Taper to prednisone at d/c. Get nebulizer for discharge to home, pt does not have one. Cont O2. Pt wishes to change O2 to same company as nebulizer. CXR yesterday did show possible mild congestion, pt had an excellent diuresis yesterday, but is still very SOA w/ even talking today. I am going to get an echo, CTA of chest, and CBC. Pt cannot go home like this. 2. HTN: Continue home BP meds, monitor for worsening on steroids. 3. Acute exacerbation of COPD: Continue current meds. See above. 4. DVT proph: Heparin. 5. Chronic pain: Continue home opioids, pt stable without side effects. 6. Disp: Pt still very SOA. Recommend echo to r/o HF and CTA to r/o PE ( unlikely, but must r/o other causes). Pt cannot go home like this, can't walk 5 feet without becoming extremely SOA. Problems: Plan of Care: see other orders Subjective Pt states she is getting very SOA even with talking. Denies fever, chest pain, dizziness, vomiting, or rash. States she has not had a BM in several days. Feeling very bloated. Objective Vital Signs Date Time Temp Pulse Resp B/P (MAP) Pulse Ox O2 Delivery O2 Flow Rate FiO2 09/17/17 08:11 87 150/87 09/17/17 08:00 Nasal Cannula 3.0 09/17/17 06:02 22 95 09/17/17 05:01 97.8 Intake and Output 09/17/17 06:59 Intake Total 3148.6 ml Output Total 2400 ml Balance 748.6 ml Intake Oral 2520 ml IV Total 628.6 ml Output Urine Total 2400 ml # Voids 3 Abdomen: Soft, No tenderness, No hepatospenomegaly Heart: Regular rate, Normal S1, Normal S2, No murmurs Extremities: No edema, Normal pulses, No tenderness/swelling General: Alert, Oriented X3, Cooperative, mild distress HEENT: PERRLA, EOMI Lungs: Other (Severely diminished breath sounds bilaterally; Faint insp/exp wheezes in upper lung alvares. Mildly labored breathing without retractions.) Neck: No JVD, No thyromegaly, No LAD Neuro: Strength at 5/5 X4 ext, Normal tone, Sensation intact, Cranial nerves 3- 12 NL Psych/Mental Status: Mental status NL, Mood NL Skin: No rashes, No breakdown Review of Relevant I have reviewed the following items lidya (where applicable) has been applied. Labs Laboratory Tests Test 09/15/17 11:40 09/15/17 13:00 09/15/17 16:45 09/15/17 20:34 Glucose (Fingerstick) 245 mg/dL (70-99) 265 mg/dL (70-99) 233 mg/dL (70-99) Sodium Level 127 mmol/L (136-145) Potassium Level 3.8 mmol/L (3.5-5.1) Chloride Level 89 mmol/L (98-107) Carbon Dioxide Level 26 mmol/L (21-32) Anion Gap 12 (6-14) Blood Urea Nitrogen 19 mg/dL (7-20) Creatinine 1.0 mg/dL (0.6-1.0) Estimated GFR (Cockcroft-Gault) 53.2 Glucose Level 295 mg/dL (70-99) Calcium Level 8.5 mg/dL (8.5-10.1) Test 09/16/17 06:00 09/16/17 07:23 09/16/17 11:21 09/16/17 13:17 Sodium Level 134 mmol/L (136-145) Potassium Level 4.1 mmol/L (3.5-5.1) Chloride Level 98 mmol/L (98-107) Carbon Dioxide Level 29 mmol/L (21-32) Anion Gap 7 (6-14) Blood Urea Nitrogen 16 mg/dL (7-20) Creatinine 0.8 mg/dL (0.6-1.0) Estimated GFR (Cockcroft-Gault) 68.8 Glucose Level 183 mg/dL (70-99) Calcium Level 8.0 mg/dL (8.5-10.1) Glucose (Fingerstick) 206 mg/dL (70-99) 236 mg/dL (70-99) QN-Nwp-Y-Type Natriuretic Peptide 444 pg/mL (0-449) Test 09/16/17 16:34 09/16/17 20:38 09/17/17 06:49 09/17/17 07:34 Glucose (Fingerstick) 235 mg/dL (70-99) 232 mg/dL (70-99) 172 mg/dL (70-99) Sodium Level 134 mmol/L (136-145) Potassium Level 4.4 mmol/L (3.5-5.1) Chloride Level 98 mmol/L (98-107) Carbon Dioxide Level 29 mmol/L (21-32) Anion Gap 7 (6-14) Blood Urea Nitrogen 20 mg/dL (7-20) Creatinine 0.9 mg/dL (0.6-1.0) Estimated GFR (Cockcroft-Gault) 60.1 Glucose Level 185 mg/dL (70-99) Calcium Level 8.1 mg/dL (8.5-10.1) Medications Current Medications Albuterol/ Ipratropium (Duoneb) 3 ml 1X ONCE NEB Last administered on at 12:29; Start 09/14/17 at 12:15; Stop 09/14/17 at 12:18; Status DC Methylprednisolone Sodium Succinate (SOLU-Medrol 125MG VIAL) 125 mg 1X ONCE IV Last administered on 09/14/17at 14:08; Start 09/14/17 at 13:30; Stop 09/14/17 at 13:34; Status DC Ondansetron HCl (Zofran) 4 mg PRN Q4HRS PRN IV NAUSEA/VOMITING; Start 09/14/17 at 14:15; Stop 09/15/17 at 14:14; Status Cancel Albuterol/ Ipratropium (Duoneb) 3 ml RTQID NEB Last administered on 09/14/17at 16:12; Start 09/14/17 at 16:00; Stop 09/14/17 at 18:01; Status DC Sodium Chloride (Normal Saline Flush) 3 ml PRN DAILY PRN IV AFTER MEDS AND BLOOD DRAWS; Start 09/14/17 at 16:30 Docusate Sodium (Colace) 100 mg BID PO Last administered on 09/17/17at 08:11; Start 09/14/17 at 21:00 Al Hydroxide/Mg Hydroxide (Mylanta Plus Xs) 30 ml PRN Q3HRS PRN PO HEARTBURN / GAS; Start 09/14/17 at 16:30 Calcium Carbonate/ Glycine (Tums) 500 mg PRN Q3HRS PRN PO HEARTBURN / GAS; Start 09/14/17 at 16:30 Info (Non-Icu Electrolyte Protocol) 1 ea CONT PRN PRN MC SEE COMMENTS; Start at 16:30 Heparin Sodium (Porcine) (Heparin Sq) 5,000 unit Q8HRS SQ Last administered on 09/16/17at 20:39; Start 09/14/17 at 22:00 Prochlorperazine Edisylate (Compazine) 10 mg PRN Q4HRS PRN IV NAUSEA/VOMITING; Start 09/14/17 at 16:30 Promethazine HCl 12.5 mg/Sodium Chloride 50.5 ml @ 100 mls/hr PRN Q6HRS PRN IV NAUSEA/VOMITING; Start 09/14/17 at 16:30 Ondansetron HCl (Zofran) 4 mg PRN Q8HRS PRN IV NAUSEA/VOMITING; Start 09/14/17 at 16:30 Diphenhydramine HCl (Benadryl) 25 mg PRN Q6HRS PRN PO SEE COMMENTS Last administered on 09/16/17at 20:35; Start 09/14/17 at 16:30 Diphenhydramine HCl (Benadryl) 25 mg PRN Q6HRS PRN IV SEE COMMENTS; Start 09/14 at 16:30 Insulin Aspart (NovoLOG) 0-5 UNITS TIDAC SQ Last administered on 09/17/17at 08: 17; Start 09/14/17 at 16:30 Dextrose 12.5 gm PRN Q15MIN PRN IV SEE COMMENTS; Start 09/14/17 at 16:30 Methylprednisolone Sodium Succinate (SOLU-Medrol 125MG VIAL) 125 mg Q12HR IV Last administered on 09/14/17at 20:03; Start 09/14/17 at 21:00; Stop 09/15/17 at 06:03; Status DC Albuterol/ Ipratropium (Duoneb) 3 ml RTQID NEB Last administered on 09/17/17at 05:55; Start 09/14/17 at 20:00 Azithromycin (Zithromax) 500 mg 1X ONCE PO Last administered on 09/14/17at 17: 06; Start 09/14/17 at 16:30; Stop 09/14/17 at 16:34; Status DC Alprazolam (Xanax) 0.5 mg HS PO Last administered on 09/16/17 20:35; Start at 21:00 Alprazolam (Xanax) 0.25 mg DAILY PO Last administered on 09/17/17 08:11; Start 09/15/17 at 09:00 Diltiazem HCl (Cardizem 24hr Cd) 240 mg DAILY PO Last administered on 08:11; Start 09/15/17 at 09:00 Hydralazine HCl (Apresoline) 50 mg TID PO Last administered on 09/17/17 08:11 ; Start 09/14/17 at 21:00 Oxycodone/ Acetaminophen (Percocet 5/325) 0.5 tab PRN Q4HRS PRN PO PAIN Last administered on 09/17/17 04:29; Start 09/14/17 at 18:00 Hydroxyzine HCl (Atarax) 25 mg PRN QHS PRN PO ITCHING Last administered on 09/16 20:35; Start 09/14/17 at 18:00 Methylprednisolone Sodium Succinate (SOLU-Medrol 125MG VIAL) 125 mg DAILY IV Last administered on 09/17/17 08:12; Start 09/15/17 at 09:00 Sodium Chloride 1,000 ml @ 100 mls/hr Q10H IV Last administered on 09/15/17at 17:47; Start 09/15/17 at 07:00; Stop 09/15/17 at 17:01; Status DC Throat Lozenges (Cepacol Sore Throat Lozenge) 1 madelin PRN Q2HR PRN PO SORE THROAT Last administered on 09/15/17 12:11; Start 09/15/17 at 11:45 Furosemide (Lasix) 40 mg 1X ONCE IVP Last administered on 09/16/17 13:49; Start 09/16/17 at 13:30; Stop 09/16/17 at 13:31; Status DC Potassium Chloride (Klor-Con) 40 meq 1X ONCE PO Last administered on 13:48; Start 09/16/17 at 13:30; Stop 09/16/17 at 13:31; Status DC Active Scripts Active Reported Ventolin Hfa Inhaler (Albuterol Sulfate) 18 Gm Hfa.aer.ad 2 Puff IH PRN Q4HRS PRN LAST DOSE GIVEN: DATE: TIME: NEXT DOSE DUE: DATE: TIME: Diltiazem 24HR Cd (Diltiazem Hcl) 120 Mg Cap.er.24h 2 Cap PO DAILY LAST DOSE GIVEN: DATE: TIME: NEXT DOSE DUE: DATE: TIME: Hydralazine Hcl 50 Mg Tablet 1 Tab PO TID LAST DOSE GIVEN: DATE: TIME: NEXT DOSE DUE: DATE: TIME: Percocet 5-325 Mg Tablet (Oxycodone Hcl/Acetaminophen) 1 Each Tablet 0.5 Tab PO Q4HRS PRN LAST DOSE GIVEN: DATE: TIME: NEXT DOSE DUE: DATE: TIME: Stiolto Respimat Inhal [place] (Tiotropium Br/Olodaterol HCl) 4 Gm Mist.inhal 2 Puff IH DAILY LAST DOSE GIVEN: DATE: TIME: NEXT DOSE DUE: DATE: TIME: Hydrochlorothiazide Tablet (Hydrochlorothiazide) 12.5 Mg Tablet 1 Tab PO DAILY LAST DOSE GIVEN: DATE: TIME: NEXT DOSE DUE: DATE: TIME: Alprazolam 0.5 Mg Tablet 1 Tab PO HS LAST DOSE GIVEN: DATE: TIME: NEXT DOSE DUE: DATE: TIME: Xanax (Alprazolam) 0.5 Mg Tablet 0.5 Tab PO DAILY LAST DOSE GIVEN: DATE: TIME: NEXT DOSE DUE: DATE: TIME: Vitals/I & O Vital Sign - Last 24 Hours 09/16/17 09/16/17 09/16/17 09/16/17 10:47 11:13 13:45 13:48 Temp 98.0 98.3 Pulse 100 108 108 Resp 18 22 B/P (MAP) 136/78 (97) 161/85 (110) 161/85 Pulse Ox 98 95 97 O2 Delivery Nasal Cannula Nasal Cannula Nasal Cannula O2 Flow Rate 2.0 2.5 3.0 09/16/17 09/16/17 09/16/17 09/16/17 16:01 19:43 20:00 20:36 Temp 97.6 Pulse 97 97 Resp 24 B/P (MAP) 139/82 (101) 139/82 Pulse Ox 98 95 O2 Delivery Nasal Cannula Nasal Cannula Nasal Cannula O2 Flow Rate 2.0 3.0 3.0 09/16/17 09/16/17 09/16/17 09/17/17 20:36 20:52 23:09 04:29 Temp 97.9 Pulse 96 Resp 24 20 B/P (MAP) 135/89 (104) Pulse Ox 95 96 97 97 O2 Delivery Nasal Cannula Nasal Cannula Nasal Cannula Nasal Cannula O2 Flow Rate 3.0 2.0 3.0 3.0 09/17/17 09/17/17 09/17/17 09/17/17 05:01 05:31 06:02 08:00 Temp 97.8 Pulse 87 Resp 20 22 B/P (MAP) 150/87 (108) Pulse Ox 97 95 95 O2 Delivery Nasal Cannula Nasal Cannula Nasal Cannula Nasal Cannula O2 Flow Rate 3.0 2.0 3.0 3.0 09/17/17 09/17/17 08:11 08:11 Pulse 87 87 B/P (MAP) 150/87 150/87 Intake and Output 09/16/17 09/16/17 09/17/17 14:59 22:59 06:59 Intake Total 840 ml 2008.6 ml 300 ml Output Total 2050 ml 350 ml Balance 840 ml -41.4 ml -50 ml Images EXAM: Chest, 2 views. HISTORY: Shortness of breath. COMPARISON: 09/14/2017 FINDINGS: Frontal and lateral views of the chest are obtained. There is mild diffuse increased interstitial opacity. There is no consolidation, effusion or pneumothorax. The heart is upper normal in size. There is a tortuous thoracic aorta. There are chronic vertebral compression fractures with vertebroplasty changes. IMPRESSION: 1. Mild diffuse increased interstitial opacity. This may be due to trace congestion. 2. No consolidated pneumonia. ADEBAYO MACDONALD MD Sep 17, 2017 09:03
[2017-09-17] MEDS: POLYETHYLENE GLYCOL 3350 17 GM PACKET. PO SCH (09:39)
[2017-09-17 09:43] LABS: BASO % 0 % (0-3); EOS % 0 % (0-3); HEMATOCRIT 38.1 % (36.0-47.0); HEMOGLOBIN 12.6 g/dL (12.0-15.5); LYMPH # 0.8 x10^3/uL (1.0-4.8); LYMPH % 5 % (24-48); MEAN CORPUSCULAR HEMOGLOBIN 31 pg (25-35); MEAN CORPUSCULAR HGB CONC 33 g/dL (31-37); MEAN CORPUSCULAR VOLUME 92 fL (79-100); MONO # 0.5 x10^3/uL (0.0-1.1); MONO % 3 % (0-9); NEUT # 14.8 x10^3uL (1.8-7.7); NEUT % 92 % (31-73); PLATELET COUNT 338 x10^3/uL (140-400); RED BLOOD COUNT 4.13 x10^6/uL (3.50-5.40); RED CELL DISTRIBUTION WIDTH 14.2 % (11.5-14.5); WHITE BLOOD COUNT 16.2 x10^3/uL (4.0-11.0)
[2017-09-17 10:21] LABS: % LYMPHS 4 % (24-48); % MONOS 3 % (0-10); % SEGS 93 % (35-66); PLT ESTIMATE ADEQUATE (ADEQUATE)
[2017-09-17 10:55] VITALS: BP 138/76
--- NOTE | 2017-09-17 12:15 | RAD ---
Indication: Dyspnea. TECHNIQUE: CT angiogram chest with 75 mL of Omnipaque 300 with multiplanar reformats. COMPARISON: None FINDINGS: Diagnostic quality PE study. There are no central, segmental or subsegmental filling defects in the pulmonary arteries. Heart is normal in size. Coronary artery calcifications noted. No pericardial or pleural effusion. Diffuse atherosclerotic disease of the thoracic and abdominal aorta are noted. No axillary, mediastinal or hilar adenopathy. Diffuse emphysematous changes seen in the lungs. Subsegmental atelectasis seen in the lingula along the left major fissure. Subsegmental atelectasis seen in the right lung base. Central airways are patent. Visualized sections through the liver, spleen, pancreas, right adrenal are within normal limits. There is thickening of the left adrenal gland which is stable compared to previous study from 09/10/2015. No suspicious bony lesion. Kyphoplasty changes in the lower thoracic vertebral body. IMPRESSION: 1. No PE. No pneumonia. 2. Diffuse mild emphysema. Electronically signed by: Luis M Jackson DO (09/17/2017 12:12 PM) [id number]
[2017-09-17 14:51] VITALS: BP 139/77
--- NOTE | 2017-09-17 17:30 | CARD ---
MR#: [id number] Date of Study: 09/17/2017 Ordering Physician: ADEBAYO MACDONALD, Referring Physician: ADEBAYO MACDONALD, Tech: Stephanie Gallego JOSE CRUZ APPROVED REPORT EXAM: Two-dimensional and M-mode echocardiogram with Doppler and color Doppler. Other Information Quality : Good INDICATION Dyspnea 2D DIMENSIONS RVDd2.4 (2.9-3.5cm)Left Atrium(2D)3.2 (1.6-4.0cm) IVSd0.9 (0.7-1.1cm)Aortic Root(2D)2.8 (2.0-3.7cm) LVDd4.4 (3.9-5.9cm)LVOT Diameter2.0 (1.8-2.4cm) PWd1.0 (0.7-1.1cm)LVDs3.2 (2.5-4.0cm) FS (%) 28.1 %SV48.6 ml LVEF(%)55.0 (>50%) Aortic Valve AoV Peak Alfredo.174.3cm/sAoV VTI33.9cm AO Peak GR.12.2mmHgAO Mean GR.6mmHg AI P 1/2 [id number] Mitral Valve MV E Fckkvjoo742.2cm/sMV DECEL [id number] MV A Mxsixkzw718.4cm/sE/A Ratio0.7 Tricuspid Valve TR P. Mloekvbr698zt/sRAP [id number] TR Peak Gr.[id number] Pulmonary Vein S1 Unxxpozl30.2cm/sD2 Vdaqftta43.7cm/s LEFT VENTRICLE The left ventricle is normal size. There is normal left ventricular wall thickness. The left ventricu lar systolic function is normal. The Ejection Fraction is 55-60%. There is normal LV segmental wall m otion. Transmitral Doppler flow pattern is Grade I-abnormal relaxation pattern. RIGHT VENTRICLE The right ventricle is normal size. The right ventricular systolic function is normal. ATRIA The left atrium size is normal. The right atrium size is normal. The interatrial septum is intact wit h no evidence for an atrial septal defect or patent foramen ovale as noted on 2-D or Doppler imaging. AORTIC VALVE The aortic valve is calcified but opens well. Doppler and Color Flow revealed mild to moderate aortic regurgitation. There is no significant aortic valvular stenosis. MITRAL VALVE The mitral valve is calcified but opens well. There is no evidence of mitral valve prolapse. There is no mitral valve stenosis. Doppler and Color-flow revealed mild mitral regurgitation. TRICUSPID VALVE The tricuspid valve is normal in structure and function. Doppler and Color Flow revealed trace tricus pid regurgitation. The PA pressure was estimated at 25 mmHg. There is no tricuspid valve stenosis. PULMONIC VALVE The pulmonic valve is not well visualized. Doppler and Color Flow revealed no pulmonic valvular regur gitation. There is no pulmonic valvular stenosis. GREAT VESSELS The aortic root is normal in size. The ascending aorta is not well seen. The IVC is normal in size an d collapses >50% with inspiration. PERICARDIAL EFFUSION There is no evidence of significant pericardial effusion. Critical Notification Critical Value: No <Conclusion> The left ventricular systolic function is normal. The Ejection Fraction is 55-60%. There is normal LV segmental wall motion. Transmitral Doppler flow pattern is Grade I-abnormal relaxation pattern. Mild to moderate aortic regurgitation. Mild mitral regurgitation. Trace tricuspid regurgitation. The PA pressure was estimated at 25 mmHg. There is no evidence of significant pericardial effusion. Signed by : Abe Infante, Electronically Approved : 09/17/2017 17:29:58
[2017-09-17] MEDS ORDERED: BISACODYL 10 MG SUPP.RECT PR ONE (18:00)
[2017-09-17 18:48] VITALS: BP 148/67
[2017-09-17] MEDS: hydrOXYzine HCL 25 MG TABLET PO PRN (20:32)
[2017-09-17] MEDS: diphenhydrAMINE HCL 25 MG CAPSULE PO PRN (20:32)
[2017-09-17] MEDS: ALPRAZolam 0.5 MG TABLET PO SCH (20:32)
[2017-09-17 23:00] VITALS: BP 136/82
[2017-09-18 06:00] VITALS: BP 162/87
[2017-09-18] MEDS: IPRATRPIUM/ALBUTEROL 0.5/2.5MG 3 ML NEBU. NEB SCH ×4 (06:04→20:41)
[2017-09-18] MEDS: HEPARIN PF for SUB-Q USE 5,000 UNIT/0.5 ML VIAL. SQ SCH ×3 (06:15→20:38)
[2017-09-18 06:55] LABS: BASO % 0 % (0-3); EOS % 0 % (0-3); HEMATOCRIT 37.1 % (36.0-47.0); HEMOGLOBIN 12.5 g/dL (12.0-15.5); LYMPH # 1.5 x10^3/uL (1.0-4.8); LYMPH % 11 % (24-48); MEAN CORPUSCULAR HEMOGLOBIN 31 pg (25-35); MEAN CORPUSCULAR HGB CONC 34 g/dL (31-37); MEAN CORPUSCULAR VOLUME 92 fL (79-100); MONO % 7 % (0-9); NEUT # 11.1 x10^3uL (1.8-7.7); NEUT % 82 % (31-73); PLATELET COUNT 311 x10^3/uL (140-400); RED BLOOD COUNT 4.04 x10^6/uL (3.50-5.40); RED CELL DISTRIBUTION WIDTH 14.2 % (11.5-14.5); WHITE BLOOD COUNT 13.5 x10^3/uL (4.0-11.0)
[2017-09-18 07:05] LABS: ALBUMIN 3.5 g/dL (3.4-5.0); ALBUMIN/GLOBULIN RATIO 1.1 (1.0-1.7); CREATININE 0.8 mg/dL (0.6-1.0); GFR 68.8; POTASSIUM 4.8 mmol/L (3.5-5.1); TOTAL BILIRUBIN 0.3 mg/dL (0.2-1.0); TOTAL PROTEIN 6.8 g/dL (6.4-8.2)
[2017-09-18] MEDS: POLYETHYLENE GLYCOL 3350 17 GM PACKET. PO SCH (08:06)
[2017-09-18] MEDS: DOCUSATE SODIUM 100 MG CAPSULE PO SCH ×2 (08:07→20:31)
[2017-09-18] MEDS: ALPRAZolam 0.25 MG TABLET PO SCH (08:08)
[2017-09-18] MEDS: methylPREDNISolone SOD SUCC PF 125 MG/2 ML VIAL. IV SCH (08:08)
[2017-09-18] MEDS ORDERED: BISACODYL TAB 5 MG TABLET.DR. PO ONE (08:15)
[2017-09-18] MEDS: INSULIN ASPART 300 UNITS/3 ML INSULN.PEN SQ SCH ×3 (08:23→17:08)
[2017-09-18 12:03] VITALS: BP 149/74
--- NOTE | 2017-09-18 13:30 | PDOC ---
PROGRESS NOTES Assessment 1. Acute on chronic respiratory failure: Continue IV steroids, nebs, abx. Taper to prednisone at d/c. Get nebulizer for discharge to home, pt does not have one. Cont O2. Pt wishes to change O2 to same company as nebulizer. CXR yesterday did show possible mild congestion, pt had an excellent diuresis yesterday, but is still very SOA w/ even talking today. CT chest and echo yesterday were unremarkable. Pt feeling better, but not quite at baseline. Does not want to do SNF, will accept HH. 2. HTN: Continue home BP meds, monitor for worsening on steroids. BP up today , will consider adjusting meds if stays up. 3. Acute exacerbation of COPD: Continue current meds. See above. 4. DVT proph: Heparin. 5. Chronic pain: Continue home opioids, pt stable and using less here in hospital. 6. Disp: If we can get pt to have BM will consider sending her home. Trial of Relistor as we have been unsuccessful to this point. Problems: Plan of Care: see other orders Subjective Pt feeling better. Still no BM. Denies vomiting or fever. Says she has had to use far less pain medicine while on steroids. Denies rash. No heartburn. Declines SNF at d/c. Objective Vital Signs Date Time Temp Pulse Resp B/P (MAP) Pulse Ox O2 Delivery O2 Flow Rate FiO2 09/18/17 12:25 98 Nasal Cannula 3.0 09/18/17 12:03 98.6 88 18 149/74 (99) Intake and Output 09/18/17 07:00 Intake Total 1320 ml Output Total 500 ml Balance 820 ml Intake Oral 1320 ml Output Urine Total 500 ml # Voids 4 Abdomen: Soft, No tenderness, No hepatospenomegaly, No masses Heart: Regular rate, Normal S1, Normal S2, No murmurs Extremities: No edema, Normal pulses, No tenderness/swelling General: Alert, Oriented X3, Cooperative, No acute distress HEENT: PERRLA, EOMI, Mucous membr. moist/pink Lungs: Other (Significantly improved air movement with very few wheezes, much improved.) Neck: No JVD, No LAD Neuro: Normal speech, Strength at 5/5 X4 ext, Normal tone, Sensation intact, Cranial nerves 3-12 NL Psych/Mental Status: Mental status NL, Mood NL Skin: No rashes Review of Relevant I have reviewed the following items lidya (where applicable) has been applied. Labs Laboratory Tests Test 09/16/17 16:34 09/16/17 20:38 09/17/17 06:49 09/17/17 07:34 Glucose (Fingerstick) 235 mg/dL (70-99) 232 mg/dL (70-99) 172 mg/dL (70-99) Sodium Level 134 mmol/L (136-145) Potassium Level 4.4 mmol/L (3.5-5.1) Chloride Level 98 mmol/L (98-107) Carbon Dioxide Level 29 mmol/L (21-32) Anion Gap 7 (6-14) Blood Urea Nitrogen 20 mg/dL (7-20) Creatinine 0.9 mg/dL (0.6-1.0) Estimated GFR (Cockcroft-Gault) 60.1 Glucose Level 185 mg/dL (70-99) Calcium Level 8.1 mg/dL (8.5-10.1) Test 09/17/17 09:30 09/17/17 11:43 09/17/17 16:17 09/17/17 20:35 White Blood Count 16.2 x10^3/uL (4.0-11.0) Red Blood Count 4.13 x10^6/uL (3.50-5.40) Hemoglobin 12.6 g/dL (12.0-15.5) Hematocrit 38.1 % (36.0-47.0) Mean Corpuscular Volume 92 fL (79-100) Mean Corpuscular Hemoglobin 31 pg (25-35) Mean Corpuscular Hemoglobin Concent 33 g/dL (31-37) Red Cell Distribution Width 14.2 % (11.5-14.5) Platelet Count 338 x10^3/uL (140-400) Neutrophils (%) (Auto) 92 % (31-73) Lymphocytes (%) (Auto) 5 % (24-48) Monocytes (%) (Auto) 3 % (0-9) Eosinophils (%) (Auto) 0 % (0-3) Basophils (%) (Auto) 0 % (0-3) Neutrophils # (Auto) 14.8 x10^3uL (1.8-7.7) Lymphocytes # (Auto) 0.8 x10^3/uL (1.0-4.8) Monocytes # (Auto) 0.5 x10^3/uL (0.0-1.1) Eosinophils # (Auto) 0.0 x10^3/uL (0.0-0.7) Basophils # (Auto) 0.0 x10^3/uL (0.0-0.2) Segmented Neutrophils % 93 % (35-66) Lymphocytes % 4 % (24-48) Monocytes % 3 % (0-10) Platelet Estimate Adequate (ADEQUATE) Glucose (Fingerstick) 226 mg/dL (70-99) 181 mg/dL (70-99) 268 mg/dL (70-99) Test 09/18/17 06:20 09/18/17 07:40 09/18/17 11:49 White Blood Count 13.5 x10^3/uL (4.0-11.0) Red Blood Count 4.04 x10^6/uL (3.50-5.40) Hemoglobin 12.5 g/dL (12.0-15.5) Hematocrit 37.1 % (36.0-47.0) Mean Corpuscular Volume 92 fL (79-100) Mean Corpuscular Hemoglobin 31 pg (25-35) Mean Corpuscular Hemoglobin Concent 34 g/dL (31-37) Red Cell Distribution Width 14.2 % (11.5-14.5) Platelet Count 311 x10^3/uL (140-400) Neutrophils (%) (Auto) 82 % (31-73) Lymphocytes (%) (Auto) 11 % (24-48) Monocytes (%) (Auto) 7 % (0-9) Eosinophils (%) (Auto) 0 % (0-3) Basophils (%) (Auto) 0 % (0-3) Neutrophils # (Auto) 11.1 x10^3uL (1.8-7.7) Lymphocytes # (Auto) 1.5 x10^3/uL (1.0-4.8) Monocytes # (Auto) 1.0 x10^3/uL (0.0-1.1) Eosinophils # (Auto) 0.0 x10^3/uL (0.0-0.7) Basophils # (Auto) 0.0 x10^3/uL (0.0-0.2) Sodium Level 134 mmol/L (136-145) Potassium Level 4.8 mmol/L (3.5-5.1) Chloride Level 98 mmol/L (98-107) Carbon Dioxide Level 29 mmol/L (21-32) Anion Gap 7 (6-14) Blood Urea Nitrogen 16 mg/dL (7-20) Creatinine 0.8 mg/dL (0.6-1.0) Estimated GFR (Cockcroft-Gault) 68.8 BUN/Creatinine Ratio 20 (6-20) Glucose Level 171 mg/dL (70-99) Calcium Level 8.0 mg/dL (8.5-10.1) Total Bilirubin 0.3 mg/dL (0.2-1.0) Aspartate Amino Transf (AST/SGOT) 27 U/L (15-37) Alanine Aminotransferase (ALT/SGPT) 57 U/L (14-59) Alkaline Phosphatase 76 U/L (46-116) Total Protein 6.8 g/dL (6.4-8.2) Albumin 3.5 g/dL (3.4-5.0) Albumin/Globulin Ratio 1.1 (1.0-1.7) Glucose (Fingerstick) 160 mg/dL (70-99) 230 mg/dL (70-99) Medications Current Medications Albuterol/ Ipratropium (Duoneb) 3 ml 1X ONCE NEB Last administered on at 12:29; Start 09/14/17 at 12:15; Stop 09/14/17 at 12:18; Status DC Methylprednisolone Sodium Succinate (SOLU-Medrol 125MG VIAL) 125 mg 1X ONCE IV Last administered on 09/14/17at 14:08; Start 09/14/17 at 13:30; Stop 09/14/17 at 13:34; Status DC Ondansetron HCl (Zofran) 4 mg PRN Q4HRS PRN IV NAUSEA/VOMITING; Start 09/14/17 at 14:15; Stop 09/15/17 at 14:14; Status Cancel Albuterol/ Ipratropium (Duoneb) 3 ml RTQID NEB Last administered on 09/14/17at 16:12; Start 09/14/17 at 16:00; Stop 09/14/17 at 18:01; Status DC Sodium Chloride (Normal Saline Flush) 3 ml PRN DAILY PRN IV AFTER MEDS AND BLOOD DRAWS; Start 09/14/17 at 16:30 Docusate Sodium (Colace) 100 mg BID PO Last administered on 09/18/17at 08:07; Start 09/14/17 at 21:00 Al Hydroxide/Mg Hydroxide (Mylanta Plus Xs) 30 ml PRN Q3HRS PRN PO HEARTBURN / GAS; Start 09/14/17 at 16:30 Calcium Carbonate/ Glycine (Tums) 500 mg PRN Q3HRS PRN PO HEARTBURN / GAS; Start 09/14/17 at 16:30 Info (Non-Icu Electrolyte Protocol) 1 ea CONT PRN PRN MC SEE COMMENTS; Start at 16:30 Heparin Sodium (Porcine) (Heparin Sq) 5,000 unit Q8HRS SQ Last administered on 09/18/17at 06:15; Start 09/14/17 at 22:00 Prochlorperazine Edisylate (Compazine) 10 mg PRN Q4HRS PRN IV NAUSEA/VOMITING; Start 09/14/17 at 16:30 Promethazine HCl 12.5 mg/Sodium Chloride 50.5 ml @ 100 mls/hr PRN Q6HRS PRN IV NAUSEA/VOMITING; Start 09/14/17 at 16:30 Ondansetron HCl (Zofran) 4 mg PRN Q8HRS PRN IV NAUSEA/VOMITING; Start 09/14/17 at 16:30 Diphenhydramine HCl (Benadryl) 25 mg PRN Q6HRS PRN PO SEE COMMENTS Last administered on 09/17/17at 20:32; Start 09/14/17 at 16:30 Diphenhydramine HCl (Benadryl) 25 mg PRN Q6HRS PRN IV SEE COMMENTS; Start 09/14 at 16:30 Insulin Aspart (NovoLOG) 0-5 UNITS TIDAC SQ Last administered on 09/18/17at 12: 08; Start 09/14/17 at 16:30 Dextrose 12.5 gm PRN Q15MIN PRN IV SEE COMMENTS; Start 09/14/17 at 16:30 Methylprednisolone Sodium Succinate (SOLU-Medrol 125MG VIAL) 125 mg Q12HR IV Last administered on 09/14/17 20:03; Start 09/14/17 at 21:00; Stop 09/15/17 at 06:03; Status DC Albuterol/ Ipratropium (Duoneb) 3 ml RTQID NEB Last administered on 09/18/17 12:25; Start 09/14/17 at 20:00 Azithromycin (Zithromax) 500 mg 1X ONCE PO Last administered on 09/14/17 17: 06; Start 09/14/17 at 16:30; Stop 09/14/17 at 16:34; Status DC Alprazolam (Xanax) 0.5 mg HS PO Last administered on 09/17/17 20:32; Start at 21:00 Alprazolam (Xanax) 0.25 mg DAILY PO Last administered on 09/18/17 08:08; Start 09/15/17 at 09:00 Diltiazem HCl (Cardizem 24hr Cd) 240 mg DAILY PO Last administered on 08:07; Start 09/15/17 at 09:00 Hydralazine HCl (Apresoline) 50 mg TID PO Last administered on 09/18/17 08:08 ; Start 09/14/17 at 21:00 Oxycodone/ Acetaminophen (Percocet 5/325) 0.5 tab PRN Q4HRS PRN PO PAIN Last administered on 09/17/17 04:29; Start 09/14/17 at 18:00 Hydroxyzine HCl (Atarax) 25 mg PRN QHS PRN PO ITCHING Last administered on 09/17 20:32; Start 09/14/17 at 18:00 Methylprednisolone Sodium Succinate (SOLU-Medrol 125MG VIAL) 125 mg DAILY IV Last administered on 09/18/17 08:08; Start 09/15/17 at 09:00 Sodium Chloride 1,000 ml @ 100 mls/hr Q10H IV Last administered on 09/15/17 17:47; Start 09/15/17 at 07:00; Stop 09/15/17 at 17:01; Status DC Throat Lozenges (Cepacol Sore Throat Lozenge) 1 madelin PRN Q2HR PRN PO SORE THROAT Last administered on 3/20/18at 12:11; Start 09/15/17 at 11:45 Furosemide (Lasix) 40 mg 1X ONCE IVP Last administered on 09/16/17at 13:49; Start 09/16/17 at 13:30; Stop 09/16/17 at 13:31; Status DC Potassium Chloride (Klor-Con) 40 meq 1X ONCE PO Last administered on at 13:48; Start 09/16/17 at 13:30; Stop 09/16/17 at 13:31; Status DC Polyethylene Glycol (miraLAX) 17 gm DAILY PO Last administered on 09/18/17at 08: 06; Start 09/17/17 at 09:00 Iohexol (Omnipaque 300 Mg/ml) 75 ml 1X ONCE IV Last administered on 09/17/17at 11:38; Start 09/17/17 at 09:00; Stop 09/17/17 at 09:05; Status DC Iohexol (Omnipaque 300 Mg/ml) 75 ml 1X ONCE IV ; Start 09/17/17 at 11:30; Stop 09/17/17 at 11:31; Status DC Bisacodyl (Dulcolax Supp) [address] Last administered on 09/17/17at 18: 13; Start 09/17/17 at 18:00; Stop 09/17/17 at 18:01; Status DC Bisacodyl (Dulcolax Tab) 10 mg 1X ONCE PO Last administered on 09/18/17at 08:08 ; Start 09/18/17 at 08:15; Stop 09/18/17 at 08:16; Status DC Methylnaltrexone [place] (Relistor) 12 mg 1X ONCE SQ ; Start 09/18/17 at 13:30 ; Stop 09/18/17 at 13:31; Status UNV Active Scripts Active Reported Ventolin Hfa Inhaler (Albuterol Sulfate) 18 Gm Hfa.aer.ad 2 Puff IH PRN Q4HRS PRN LAST DOSE GIVEN: DATE: TIME: NEXT DOSE DUE: DATE: TIME: Diltiazem 24HR Cd (Diltiazem Hcl) 120 Mg Cap.er.24h 2 Cap PO DAILY LAST DOSE GIVEN: DATE: TIME: NEXT DOSE DUE: DATE: TIME: Hydralazine Hcl 50 Mg Tablet 1 Tab PO TID LAST DOSE GIVEN: DATE: TIME: NEXT DOSE DUE: DATE: TIME: Percocet 5-325 Mg Tablet (Oxycodone Hcl/Acetaminophen) 1 Each Tablet 0.5 Tab PO Q4HRS PRN LAST DOSE GIVEN: DATE: TIME: NEXT DOSE DUE: DATE: TIME: Stiolto Respimat Inhal Wallace (Tiotropium Br/Olodaterol HCl) 4 Gm Mist.inhal 2 Puff IH DAILY LAST DOSE GIVEN: DATE: TIME: NEXT DOSE DUE: DATE: TIME: Hydrochlorothiazide Tablet (Hydrochlorothiazide) 12.5 Mg Tablet 1 Tab PO DAILY LAST DOSE GIVEN: DATE: TIME: NEXT DOSE DUE: DATE: TIME: Alprazolam 0.5 Mg Tablet 1 Tab PO HS LAST DOSE GIVEN: DATE: TIME: NEXT DOSE DUE: DATE: TIME: Xanax (Alprazolam) 0.5 Mg Tablet 0.5 Tab PO DAILY LAST DOSE GIVEN: DATE: TIME: NEXT DOSE DUE: DATE: TIME: Vitals/I & O Vital Sign - Last 24 Hours 09/17/17 09/17/17 09/17/17 09/17/17 14:51 15:42 16:08 18:48 Temp 97.9 98.1 Pulse 90 90 97 Resp 20 20 B/P (MAP) 139/77 (97) 139/77 148/67 (94) Pulse Ox 97 99 98 O2 Delivery Nasal Cannula Nasal Cannula Nasal Cannula O2 Flow Rate 2.0 2.5 3.0 09/17/17 09/17/17 09/17/17 09/17/17 20:00 20:33 20:52 23:00 Temp 97.8 Pulse 97 79 Resp 20 B/P (MAP) 148/67 136/82 (100) Pulse Ox 98 96 O2 Delivery Nasal Cannula Nasal Cannula Nasal Cannula O2 Flow Rate 3.0 2.5 3.0 09/18/17 09/18/17 09/18/17 09/18/17 05:55 06:00 08:00 08:07 Temp 97.8 Pulse 92 92 Resp 22 B/P (MAP) 162/87 (112) 162/87 Pulse Ox 95 95 O2 Delivery Nasal Cannula Nasal Cannula Nasal Cannula O2 Flow Rate 2.5 3.0 3.0 09/18/17 09/18/17 09/18/17 08:08 12:03 12:25 Temp 98.6 Pulse 92 88 Resp 18 B/P (MAP) 162/87 149/74 (99) Pulse Ox 97 98 O2 Delivery Room Air Nasal Cannula O2 Flow Rate 3.0 Intake and Output 09/17/17 09/17/17 09/18/17 15:00 23:00 07:00 Intake Total 480 ml 240 ml 600 ml Output Total 150 ml 350 ml Balance 330 ml -110 ml 600 ml Images Indication: Dyspnea. TECHNIQUE: CT angiogram chest with 75 mL of Omnipaque 300 with multiplanar reformats. COMPARISON: None FINDINGS: Diagnostic quality PE study. There are no central, segmental or subsegmental filling defects in the pulmonary arteries. Heart is normal in size. Coronary artery calcifications noted. No pericardial or pleural effusion. Diffuse atherosclerotic disease of the thoracic and abdominal aorta are noted. No axillary, mediastinal or hilar adenopathy. Diffuse emphysematous changes seen in the lungs. Subsegmental atelectasis seen in the lingula along the left major fissure. Subsegmental atelectasis seen in the right lung base. Central airways are patent. Visualized sections through the liver, spleen, pancreas, right adrenal are within normal limits. There is thickening of the left adrenal gland which is stable compared to previous study from 09/10/2015. No suspicious bony lesion. Kyphoplasty changes in the lower thoracic vertebral body. IMPRESSION: 1. No PE. No pneumonia. 2. Diffuse mild emphysema. EXAM: Two-dimensional and M-mode echocardiogram with Doppler and color Doppler. Other Information Quality : Good INDICATION Dyspnea 2D DIMENSIONS RVDd 2.4 (2.9-3.5cm) Left Atrium(2D) 3.2 (1.6-4.0cm) IVSd 0.9 (0.7-1.1cm) Aortic Root(2D) 2.8 (2.0-3.7cm) LVDd 4.4 (3.9-5.9cm) LVOT Diameter 2.0 (1.8-2.4cm) PWd 1.0 (0.7-1.1cm) LVDs 3.2 (2.5-4.0cm) FS (%) 28.1 % SV 48.6 ml LVEF(%) 55.0 (>50%) Aortic Valve AoV Peak Alfredo. 174.3cm/s AoV VTI 33.9cm AO Peak GR. 12.2mmHg AO Mean GR. 6mmHg AI P 1/2 Time 322ms Mitral Valve MV E Velocity 125.2cm/s MV DECEL TIME 147ms MV A Velocity 169.4cm/s E/A Ratio 0.7 Tricuspid Valve TR P. Velocity 232cm/s RAP ESTIMATE 3mmHg TR Peak Gr. 22mmHg RVSP 25mmHg Pulmonary Vein S1 Velocity 83.2cm/s D2 Velocity 56.7cm/s LEFT VENTRICLE The left ventricle is normal size. There is normal left ventricular wall thickness. The left ventricular systolic function is normal. The Ejection Fraction is 55-60%. There is normal LV segmental wall motion. Transmitral Doppler flow pattern is Grade I-abnormal relaxation pattern. RIGHT VENTRICLE The right ventricle is normal size. The right ventricular systolic function is normal. ATRIA The left atrium size is normal. The right atrium size is normal. The interatrial septum is intact with no evidence for an atrial septal defect or patent foramen ovale as noted on 2-D or Doppler imaging. AORTIC VALVE The aortic valve is calcified but opens well. Doppler and Color Flow revealed mild to moderate aortic regurgitation. There is no significant aortic valvular stenosis. MITRAL VALVE The mitral valve is calcified but opens well. There is no evidence of mitral valve prolapse. There is no mitral valve stenosis. Doppler and Color-flow revealed mild mitral regurgitation. TRICUSPID VALVE The tricuspid valve is normal in structure and function. Doppler and Color Flow revealed trace tricuspid regurgitation. The PA pressure was estimated at 25 mmHg. There is no tricuspid valve stenosis. PULMONIC VALVE The pulmonic valve is not well visualized. Doppler and Color Flow revealed no pulmonic valvular regurgitation. There is no pulmonic valvular stenosis. GREAT VESSELS The aortic root is normal in size. The ascending aorta is not well seen. The IVC is normal in size and collapses >50% with inspiration. PERICARDIAL EFFUSION There is no evidence of significant pericardial effusion. Critical Notification Critical Value: No <Conclusion> The left ventricular systolic function is normal. The Ejection Fraction is 55-60%. There is normal LV segmental wall motion. Transmitral Doppler flow pattern is Grade I-abnormal relaxation pattern. Mild to moderate aortic regurgitation. Mild mitral regurgitation. Trace tricuspid regurgitation. The PA pressure was estimated at 25 mmHg. There is no evidence of significant pericardial effusion. ADEBAYO MACDONALD MD Sep 18, 2017 13:30
[2017-09-18] MEDS ORDERED: METHYLNALTREXONE 12 MG/0.6 ML VIAL. SQ ONE (14:00)
[2017-09-18 14:35] VITALS: BP 144/87
[2017-09-18 18:20] VITALS: BP 159/70
[2017-09-18] MEDS: hydrOXYzine HCL 25 MG TABLET PO PRN (20:31)
[2017-09-18] MEDS: diphenhydrAMINE HCL 25 MG CAPSULE PO PRN (20:32)
[2017-09-18] MEDS: ALPRAZolam 0.5 MG TABLET PO SCH (20:32)
[2017-09-18 23:07] VITALS: BP 158/85
[2017-09-19] MEDS: IPRATRPIUM/ALBUTEROL 0.5/2.5MG 3 ML NEBU. NEB SCH ×2 (05:27→09:49)
[2017-09-19 05:33] VITALS: BP 159/80
[2017-09-19] MEDS: HEPARIN PF for SUB-Q USE 5,000 UNIT/0.5 ML VIAL. SQ SCH (05:37)
[2017-09-19] MEDS: INSULIN ASPART 300 UNITS/3 ML INSULN.PEN SQ SCH (07:30)
[2017-09-19] MEDS: ALPRAZolam 0.25 MG TABLET PO SCH (08:38)
[2017-09-19] MEDS: DOCUSATE SODIUM 100 MG CAPSULE PO SCH (08:38)
[2017-09-19] MEDS: POLYETHYLENE GLYCOL 3350 17 GM PACKET. PO SCH (08:38)
[2017-09-19] MEDS: methylPREDNISolone SOD SUCC PF 125 MG/2 ML VIAL. IV SCH (08:39)
[2017-09-19 10:53] VITALS: BP 152/80
[2017-09-19] MEDS ORDERED: POLY17PO5 PO (11:55)
[2017-09-19] MEDS ORDERED: PRED-220 PO (11:55)
[2017-09-19] MEDS ORDERED: ALPR0.5T PO (11:55)
[2017-09-19] MEDS ORDERED: HYDR25TA PO (11:55)
[2017-09-19] MEDS ORDERED: DOCU-109 PO (11:55)
[2017-09-19] MEDS ORDERED: IPRA3AMP NEB (11:55)
[2017-09-19] MEDS ORDERED: DOXY100T PO (11:55)
--- NOTE | 2017-09-19 11:57 | DISCH ---
DISCHARGE ORDERS DISCHARGE DATE: Sep 19, 2017 FINAL DIAGNOSIS COPD exacerbation Chronic pain Constipation Hypertension Anxiety Insomnia CONDITION AT DISCHARGE: Stable HOME HEALTH: Yes PT. HAS FUNCTIONAL LIMITATIONS: Yes FACE TO FACE ENCOUNTER COMPLET: Yes POST DISCHARGE ORDERS ACTIVITY ORDERS: Activity as tolerated DIET AFTER DISCHARGE: ADA CHECKS AFTER DISCHARGE CHECKS AFTER DISCHARGE: Check blood press - daily, Check blood sugar, ac/hs, Weigh Yourself Daily TREATMENT/EQUIPMENT ORDERS ADAPTIVE EQUIPMENT NEEDED: Front wheeled walker RESPIRATORY EQUIPMENT: Oxygen, Nebulizer ADEBAYO MACDONALD MD Sep 19, 2017 11:57
--- NOTE | 2017-09-19 12:04 | PDOC3 ---
Discharge Summary Discharge Summary Date of Admission Date of Admission: Sep 14, 2017 at 14:33 Admitting Diagnosis Acute on chronic respiratory failure Acute COPD exacerbation Constipation, opioid-induced Chronic pain Anxiety Insomnia Date of Discharge: Sep 19, 2017 Discharge Diagnosis Acute on chronic respiratory failure Acute COPD exacerbation Constipation, opioid-induced Chronic pain Anxiety Insomnia Laboratory Findings Laboratory Tests Test 09/14/17 12:22 09/14/17 17:07 09/14/17 17:50 09/14/17 20:29 White Blood Count 10.1 x10^3/uL (4.0-11.0) Red Blood Count 4.27 x10^6/uL (3.50-5.40) Hemoglobin 13.2 g/dL (12.0-15.5) Hematocrit 39.1 % (36.0-47.0) Mean Corpuscular Volume 92 fL (79-100) Mean Corpuscular Hemoglobin 31 pg (25-35) Mean Corpuscular Hemoglobin Concent 34 g/dL (31-37) Red Cell Distribution Width 14.0 % (11.5-14.5) Platelet Count 298 x10^3/uL (140-400) Neutrophils (%) (Auto) 67 % (31-73) Lymphocytes (%) (Auto) 17 % (24-48) Monocytes (%) (Auto) 12 % (0-9) Eosinophils (%) (Auto) 4 % (0-3) Basophils (%) (Auto) 1 % (0-3) Neutrophils # (Auto) 6.7 x10^3uL (1.8-7.7) Lymphocytes # (Auto) 1.7 x10^3/uL (1.0-4.8) Monocytes # (Auto) 1.2 x10^3/uL (0.0-1.1) Eosinophils # (Auto) 0.4 x10^3/uL (0.0-0.7) Basophils # (Auto) 0.1 x10^3/uL (0.0-0.2) Sodium Level 128 mmol/L (136-145) Potassium Level 4.1 mmol/L (3.5-5.1) Chloride Level 93 mmol/L (98-107) Carbon Dioxide Level 28 mmol/L (21-32) Anion Gap 7 (6-14) Blood Urea Nitrogen 13 mg/dL (7-20) Creatinine 0.7 mg/dL (0.6-1.0) Estimated GFR (Cockcroft-Gault) 80.3 Glucose Level 151 mg/dL (70-99) Calcium Level 9.2 mg/dL (8.5-10.1) Total Bilirubin 0.3 mg/dL (0.2-1.0) Direct Bilirubin 0.1 mg/dL (0.0-0.2) Aspartate Amino Transf (AST/SGOT) 21 U/L (15-37) Alanine Aminotransferase (ALT/SGPT) 35 U/L (14-59) Alkaline Phosphatase 105 U/L (46-116) Troponin I Quantitative < 0.017 ng/mL (0-0.055) < 0.017 ng/mL (0-0.055) WG-Apg-G-Type Natriuretic Peptide 87 pg/mL (0-449) Total Protein 7.0 g/dL (6.4-8.2) Albumin 3.5 g/dL (3.4-5.0) Lipase 96 U/L (73-393) Glucose (Fingerstick) 205 mg/dL (70-99) 227 mg/dL (70-99) Test 09/14/17 20:55 09/15/17 05:35 09/15/17 07:36 09/15/17 11:40 Troponin I Quantitative < 0.017 ng/mL (0-0.055) White Blood Count 10.1 x10^3/uL (4.0-11.0) Red Blood Count 4.12 x10^6/uL (3.50-5.40) Hemoglobin 12.8 g/dL (12.0-15.5) Hematocrit 37.3 % (36.0-47.0) Mean Corpuscular Volume 91 fL (79-100) Mean Corpuscular Hemoglobin 31 pg (25-35) Mean Corpuscular Hemoglobin Concent 34 g/dL (31-37) Red Cell Distribution Width 13.7 % (11.5-14.5) Platelet Count 298 x10^3/uL (140-400) Neutrophils (%) (Auto) 90 % (31-73) Lymphocytes (%) (Auto) 9 % (24-48) Monocytes (%) (Auto) 1 % (0-9) Eosinophils (%) (Auto) 0 % (0-3) Basophils (%) (Auto) 0 % (0-3) Neutrophils # (Auto) 9.1 x10^3uL (1.8-7.7) Lymphocytes # (Auto) 0.9 x10^3/uL (1.0-4.8) Monocytes # (Auto) 0.1 x10^3/uL (0.0-1.1) Eosinophils # (Auto) 0.0 x10^3/uL (0.0-0.7) Basophils # (Auto) 0.0 x10^3/uL (0.0-0.2) Sodium Level 125 mmol/L (136-145) Potassium Level 4.4 mmol/L (3.5-5.1) Chloride Level 89 mmol/L (98-107) Carbon Dioxide Level 27 mmol/L (21-32) Anion Gap 9 (6-14) Blood Urea Nitrogen 19 mg/dL (7-20) Creatinine 1.0 mg/dL (0.6-1.0) Estimated GFR (Cockcroft-Gault) 53.2 Glucose Level 212 mg/dL (70-99) Calcium Level 8.8 mg/dL (8.5-10.1) Glucose (Fingerstick) 228 mg/dL (70-99) 245 mg/dL (70-99) Test 09/15/17 13:00 09/15/17 16:45 09/15/17 20:34 09/16/17 06:00 Sodium Level 127 mmol/L (136-145) 134 mmol/L (136-145) Potassium Level 3.8 mmol/L (3.5-5.1) 4.1 mmol/L (3.5-5.1) Chloride Level 89 mmol/L (98-107) 98 mmol/L (98-107) Carbon Dioxide Level 26 mmol/L (21-32) 29 mmol/L (21-32) Anion Gap 12 (6-14) 7 (6-14) Blood Urea Nitrogen 19 mg/dL (7-20) 16 mg/dL (7-20) Creatinine 1.0 mg/dL (0.6-1.0) 0.8 mg/dL (0.6-1.0) Estimated GFR (Cockcroft-Gault) 53.2 68.8 Glucose Level 295 mg/dL (70-99) 183 mg/dL (70-99) Calcium Level 8.5 mg/dL (8.5-10.1) 8.0 mg/dL (8.5-10.1) Glucose (Fingerstick) 265 mg/dL (70-99) 233 mg/dL (70-99) Test 09/16/17 07:23 09/16/17 11:21 09/16/17 13:17 09/16/17 16:34 Glucose (Fingerstick) 206 mg/dL (70-99) 236 mg/dL (70-99) 235 mg/dL (70-99) XX-Nzh-V-Type Natriuretic Peptide 444 pg/mL (0-449) Test 09/16/17 20:38 09/17/17 06:49 09/17/17 07:34 09/17/17 09:30 Glucose (Fingerstick) 232 mg/dL (70-99) 172 mg/dL (70-99) Sodium Level 134 mmol/L (136-145) Potassium Level 4.4 mmol/L (3.5-5.1) Chloride Level 98 mmol/L (98-107) Carbon Dioxide Level 29 mmol/L (21-32) Anion Gap 7 (6-14) Blood Urea Nitrogen 20 mg/dL (7-20) Creatinine 0.9 mg/dL (0.6-1.0) Estimated GFR (Cockcroft-Gault) 60.1 Glucose Level 185 mg/dL (70-99) Calcium Level 8.1 mg/dL (8.5-10.1) White Blood Count 16.2 x10^3/uL (4.0-11.0) Red Blood Count 4.13 x10^6/uL (3.50-5.40) Hemoglobin 12.6 g/dL (12.0-15.5) Hematocrit 38.1 % (36.0-47.0) Mean Corpuscular Volume 92 fL (79-100) Mean Corpuscular Hemoglobin 31 pg (25-35) Mean Corpuscular Hemoglobin Concent 33 g/dL (31-37) Red Cell Distribution Width 14.2 % (11.5-14.5) Platelet Count 338 x10^3/uL (140-400) Neutrophils (%) (Auto) 92 % (31-73) Lymphocytes (%) (Auto) 5 % (24-48) Monocytes (%) (Auto) 3 % (0-9) Eosinophils (%) (Auto) 0 % (0-3) Basophils (%) (Auto) 0 % (0-3) Neutrophils # (Auto) 14.8 x10^3uL (1.8-7.7) Lymphocytes # (Auto) 0.8 x10^3/uL (1.0-4.8) Monocytes # (Auto) 0.5 x10^3/uL (0.0-1.1) Eosinophils # (Auto) 0.0 x10^3/uL (0.0-0.7) Basophils # (Auto) 0.0 x10^3/uL (0.0-0.2) Segmented Neutrophils % 93 % (35-66) Lymphocytes % 4 % (24-48) Monocytes % 3 % (0-10) Platelet Estimate Adequate (ADEQUATE) Test 09/17/17 11:43 09/17/17 16:17 09/17/17 20:35 09/18/17 06:20 Glucose (Fingerstick) 226 mg/dL (70-99) 181 mg/dL (70-99) 268 mg/dL (70-99) White Blood Count 13.5 x10^3/uL (4.0-11.0) Red Blood Count 4.04 x10^6/uL (3.50-5.40) Hemoglobin 12.5 g/dL (12.0-15.5) Hematocrit 37.1 % (36.0-47.0) Mean Corpuscular Volume 92 fL (79-100) Mean Corpuscular Hemoglobin 31 pg (25-35) Mean Corpuscular Hemoglobin Concent 34 g/dL (31-37) Red Cell Distribution Width 14.2 % (11.5-14.5) Platelet Count 311 x10^3/uL (140-400) Neutrophils (%) (Auto) 82 % (31-73) Lymphocytes (%) (Auto) 11 % (24-48) Monocytes (%) (Auto) 7 % (0-9) Eosinophils (%) (Auto) 0 % (0-3) Basophils (%) (Auto) 0 % (0-3) Neutrophils # (Auto) 11.1 x10^3uL (1.8-7.7) Lymphocytes # (Auto) 1.5 x10^3/uL (1.0-4.8) Monocytes # (Auto) 1.0 x10^3/uL (0.0-1.1) Eosinophils # (Auto) 0.0 x10^3/uL (0.0-0.7) Basophils # (Auto) 0.0 x10^3/uL (0.0-0.2) Sodium Level 134 mmol/L (136-145) Potassium Level 4.8 mmol/L (3.5-5.1) Chloride Level 98 mmol/L (98-107) Carbon Dioxide Level 29 mmol/L (21-32) Anion Gap 7 (6-14) Blood Urea Nitrogen 16 mg/dL (7-20) Creatinine 0.8 mg/dL (0.6-1.0) Estimated GFR (Cockcroft-Gault) 68.8 BUN/Creatinine Ratio 20 (6-20) Glucose Level 171 mg/dL (70-99) Calcium Level 8.0 mg/dL (8.5-10.1) Total Bilirubin 0.3 mg/dL (0.2-1.0) Aspartate Amino Transf (AST/SGOT) 27 U/L (15-37) Alanine Aminotransferase (ALT/SGPT) 57 U/L (14-59) Alkaline Phosphatase 76 U/L (46-116) Total Protein 6.8 g/dL (6.4-8.2) Albumin 3.5 g/dL (3.4-5.0) Albumin/Globulin Ratio 1.1 (1.0-1.7) Test 09/18/17 07:40 09/18/17 11:49 09/18/17 16:11 09/18/17 19:24 Glucose (Fingerstick) 160 mg/dL (70-99) 230 mg/dL (70-99) 220 mg/dL (70-99) 220 mg/dL (70-99) Test 09/19/17 07:44 09/19/17 11:32 Glucose (Fingerstick) 137 mg/dL (70-99) 212 mg/dL (70-99) Hospital Course Pt admitted for acute respiratory failure. She was thought initially to have COPD exacerbation, but remained significantly SOA despite adequate treatment. CT of chest was performed. No PE, no pneumonia. Echo performed, showed no significant abnormality. Pt did receive significant fluid on admission, and received IV Lasix. She improved after that. Pt's HCTZ was d/c'd due to her hyponatremia on admission. Na was 134 at last check. Pt will be discharged w/ HH as she declined SNF referral. She will need PT/OT and fdc. She will continue O2 and has been given a nebulizer. She did well w/ Vistaril instead of Xanax for sleeping. I have changed her Xanax Rx to 1-2 times per day PRN and added Vistaril, pt advised to avoid taking both. Pt was able to use less opioid pain medicine while in hospital and plans to continue this at home. She will take a prolonged steroid taper and use the nebuilzer QID. I will f/u with her within the next 1-2 weeks. Her sugars should improve as she tapers off the steroids. Her COPD is fairly advanced, and pt is advised to call immediately if her SOA is worsening. Condition at Discharge: Stable Home Meds Active Scripts Alprazolam (XANAX) 0.5 Mg Tablet, 0.5 TAB PO PRN Q12HR Y for ANXIETY / AGITATION , #30 LAST DOSE GIVEN: DATE: TIME: NEXT DOSE DUE: DATE: TIME: Prov:ADEBAYO COTTON MD 09/19/17 Reported Medications Albuterol Sulfate (VENTOLIN HFA INHALER) 18 Gm Hfa.aer.ad, 2 PUFF IH PRN Q4HRS Y for FOR ASTHMA LAST DOSE GIVEN: DATE: TIME: NEXT DOSE DUE: DATE: TIME: 09/14/17 Diltiazem Hcl (DILTIAZEM 24HR CD) 120 Mg Cap.er.24h, 2 CAP PO DAILY for HIGH BLOOD PRESSURE LAST DOSE GIVEN: DATE: TIME: NEXT DOSE DUE: DATE: TIME: 09/14/17 Hydralazine Hcl (HYDRALAZINE HCL) 50 Mg Tablet, 1 TAB PO TID for HIGH BLOOD PRESSURE LAST DOSE GIVEN: DATE: TIME: NEXT DOSE DUE: DATE: TIME: 09/14/17 Oxycodone Hcl/Acetaminophen (PERCOCET 5-325 MG TABLET) 1 Each Tablet, 0.5 TAB PO Q4HRS Y for PAIN LAST DOSE GIVEN: DATE: TIME: NEXT DOSE DUE: DATE: TIME: 09/14/17 Tiotropium Br/Olodaterol HCl (Stiolto Respimat Inhal [place]) 4 Gm Mist.inhal, 2 PUFF IH DAILY for SHORTNESS OF BREATH LAST DOSE GIVEN: DATE: TIME: NEXT DOSE DUE: DATE: TIME: 09/14/17 Hydrochlorothiazide (HYDROCHLOROTHIAZIDE TABLET) 12.5 Mg Tablet, 1 TAB PO DAILY for HIGH BLOOD PRESSURE LAST DOSE GIVEN: DATE: TIME: NEXT DOSE DUE: DATE: TIME: 09/14/17 Alprazolam (ALPRAZOLAM) 0.5 Mg Tablet, 1 TAB PO HS for ANXIETY LAST DOSE GIVEN: DATE: TIME: NEXT DOSE DUE: DATE: TIME: 09/10/15 Inpatient Meds Current Medications Albuterol/ Ipratropium (Duoneb) 3 ml 1X ONCE NEB Last administered on at 12:29; Start 09/14/17 at 12:15; Stop 09/14/17 at 12:18; Status DC Methylprednisolone Sodium Succinate (SOLU-Medrol 125MG VIAL) 125 mg 1X ONCE IV Last administered on 09/14/17at 14:08; Start 09/14/17 at 13:30; Stop 09/14/17 at 13:34; Status DC Ondansetron HCl (Zofran) 4 mg PRN Q4HRS PRN IV NAUSEA/VOMITING; Start 09/14/17 at 14:15; Stop 09/15/17 at 14:14; Status Cancel Albuterol/ Ipratropium (Duoneb) 3 ml RTQID NEB Last administered on 09/14/17at 16:12; Start 09/14/17 at 16:00; Stop 09/14/17 at 18:01; Status DC Sodium Chloride (Normal Saline Flush) 3 ml PRN DAILY PRN IV AFTER MEDS AND BLOOD DRAWS; Start 09/14/17 at 16:30 Docusate Sodium (Colace) 100 mg BID PO Last administered on 09/19/17at 08:38; Start 09/14/17 at 21:00 Al Hydroxide/Mg Hydroxide (Mylanta Plus Xs) 30 ml PRN Q3HRS PRN PO HEARTBURN / GAS; Start 09/14/17 at 16:30 Calcium Carbonate/ Glycine (Tums) 500 mg PRN Q3HRS PRN PO HEARTBURN / GAS; Start 09/14/17 at 16:30 Info (Non-Icu Electrolyte Protocol) 1 ea CONT PRN PRN MC SEE COMMENTS; Start at 16:30 Heparin Sodium (Porcine) (Heparin Sq) 5,000 unit Q8HRS SQ Last administered on 09/19/17at 05:37; Start 09/14/17 at 22:00 Prochlorperazine Edisylate (Compazine) 10 mg PRN Q4HRS PRN IV NAUSEA/VOMITING; Start 09/14/17 at 16:30 Promethazine HCl 12.5 mg/Sodium Chloride 50.5 ml @ 100 mls/hr PRN Q6HRS PRN IV NAUSEA/VOMITING; Start 09/14/17 at 16:30 Ondansetron HCl (Zofran) 4 mg PRN Q8HRS PRN IV NAUSEA/VOMITING; Start 09/14/17 at 16:30 Diphenhydramine HCl (Benadryl) 25 mg PRN Q6HRS PRN PO SEE COMMENTS Last administered on 09/18/17at 20:32; Start 09/14/17 at 16:30 Diphenhydramine HCl (Benadryl) 25 mg PRN Q6HRS PRN IV SEE COMMENTS; Start 09/14 at 16:30 Insulin Aspart (NovoLOG) 0-5 UNITS TIDAC SQ Last administered on 09/18/17at 17: 08; Start 09/14/17 at 16:30 Dextrose 12.5 gm PRN Q15MIN PRN IV SEE COMMENTS; Start 09/14/17 at 16:30 Methylprednisolone Sodium Succinate (SOLU-Medrol 125MG VIAL) 125 mg Q12HR IV Last administered on 09/14/17at 20:03; Start 09/14/17 at 21:00; Stop 09/15/17 at 06:03; Status DC Albuterol/ Ipratropium (Duoneb) 3 ml RTQID NEB Last administered on 09/19/17at 09:49; Start 09/14/17 at 20:00 Azithromycin (Zithromax) 500 mg 1X ONCE PO Last administered on 09/14/17at 17: 06; Start 09/14/17 at 16:30; Stop 09/14/17 at 16:34; Status DC Alprazolam (Xanax) 0.5 mg HS PO Last administered on 09/18/17 20:32; Start at 21:00 Alprazolam (Xanax) 0.25 mg DAILY PO Last administered on 09/19/17 08:38; Start 09/15/17 at 09:00 Diltiazem HCl (Cardizem 24hr Cd) 240 mg DAILY PO Last administered on 08:38; Start 09/15/17 at 09:00 Hydralazine HCl (Apresoline) 50 mg TID PO Last administered on 09/19/17 08:38 ; Start 09/14/17 at 21:00 Oxycodone/ Acetaminophen (Percocet 5/325) 0.5 tab PRN Q4HRS PRN PO PAIN Last administered on 09/17/17 04:29; Start 09/14/17 at 18:00 Hydroxyzine HCl (Atarax) 25 mg PRN QHS PRN PO ITCHING Last administered on 09/18 20:31; Start 09/14/17 at 18:00 Methylprednisolone Sodium Succinate (SOLU-Medrol 125MG VIAL) 125 mg DAILY IV Last administered on 09/19/17 08:39; Start 09/15/17 at 09:00 Sodium Chloride 1,000 ml @ 100 mls/hr Q10H IV Last administered on 09/15/17 17:47; Start 09/15/17 at 07:00; Stop 09/15/17 at 17:01; Status DC Throat Lozenges (Cepacol Sore Throat Lozenge) 1 madelin PRN Q2HR PRN PO SORE THROAT Last administered on 09/15/17 12:11; Start 09/15/17 at 11:45 Furosemide (Lasix) 40 mg 1X ONCE IVP Last administered on 09/16/17 13:49; Start 09/16/17 at 13:30; Stop 09/16/17 at 13:31; Status DC Potassium Chloride (Klor-Con) 40 meq 1X ONCE PO Last administered on 13:48; Start 09/16/17 at 13:30; Stop 09/16/17 at 13:31; Status DC Polyethylene Glycol (miraLAX) 17 gm DAILY PO Last administered on 09/19/17at 08: 38; Start 09/17/17 at 09:00 Iohexol (Omnipaque 300 Mg/ml) 75 ml 1X ONCE IV Last administered on 09/17/17at 11:38; Start 09/17/17 at 09:00; Stop 09/17/17 at 09:05; Status DC Iohexol (Omnipaque 300 Mg/ml) 75 ml 1X ONCE IV ; Start 09/17/17 at 11:30; Stop 09/17/17 at 11:31; Status DC Bisacodyl (Dulcolax Supp) 10 mg 1X ONCE HI Last administered on 09/17/17at 18: 13; Start 09/17/17 at 18:00; Stop 09/17/17 at 18:01; Status DC Bisacodyl (Dulcolax Tab) 10 mg 1X ONCE PO Last administered on 09/18/17at 08:08 ; Start 09/18/17 at 08:15; Stop 09/18/17 at 08:16; Status DC Methylnaltrexone [place] (Relistor) 6 mg 1X ONCE SQ Last administered on at 13:50; Start 09/18/17 at 14:00; Stop 09/18/17 at 14:02; Status DC Active Scripts Active Xanax (Alprazolam) 0.5 Mg Tablet 0.5 Tab PO PRN Q12HR PRN LAST DOSE GIVEN: DATE: TIME: NEXT DOSE DUE: DATE: TIME: Reported Ventolin Hfa Inhaler (Albuterol Sulfate) 18 Gm Hfa.aer.ad 2 Puff IH PRN Q4HRS PRN LAST DOSE GIVEN: DATE: TIME: NEXT DOSE DUE: DATE: TIME: Diltiazem 24HR Cd (Diltiazem Hcl) 120 Mg Cap.er.24h 2 Cap PO DAILY LAST DOSE GIVEN: DATE: TIME: NEXT DOSE DUE: DATE: TIME: Hydralazine Hcl 50 Mg Tablet 1 Tab PO TID LAST DOSE GIVEN: DATE: TIME: NEXT DOSE DUE: DATE: TIME: Percocet 5-325 Mg Tablet (Oxycodone Hcl/Acetaminophen) 1 Each Tablet 0.5 Tab PO Q4HRS PRN LAST DOSE GIVEN: DATE: TIME: NEXT DOSE DUE: DATE: TIME: Stiolto Respimat Inhal [place] (Tiotropium Br/Olodaterol HCl) 4 Gm Mist.inhal 2 Puff IH DAILY LAST DOSE GIVEN: DATE: TIME: NEXT DOSE DUE: DATE: TIME: Hydrochlorothiazide Tablet (Hydrochlorothiazide) 12.5 Mg Tablet 1 Tab PO DAILY LAST DOSE GIVEN: DATE: TIME: NEXT DOSE DUE: DATE: TIME: Alprazolam 0.5 Mg Tablet 1 Tab PO HS LAST DOSE GIVEN: DATE: TIME: NEXT DOSE DUE: DATE: TIME: Activity: as tolerated Diet: Cardiac, Consistent Carbohydrate Consulting Physician: KIERSTEN MCKAY MD Consulting Speciality: Cardiac Follow-up Plan F/u with Dr. Cotton in 1-2 weeks ADEBAYO COTTON MD Sep 19, 2017 12:04
[2017-09-19] MEDS: oxyCODONE/APAP 5/325 1 TAB TABLET PO PRN (13:41)
== END 2017-09-19 13:45 | disposition home or self-care (01) | DRG 189 ==
LOC: ER 12:00 → 1 SOUTH 14:33
PROVIDERS: ADMIT Family Medicine; ATTEND Family Medicine
DX: J96.20 Acute and chronic respiratory failure, unspecified whether with hypoxia or hypercapnia (principal); E11.65 Type 2 diabetes mellitus with hyperglycemia; J44.1 Chronic obstructive pulmonary disease with (acute) exacerbation; E87.1 Hypo-osmolality and hyponatremia; E03.9 Hypothyroidism, unspecified; F41.9 Anxiety disorder, unspecified; I10 Essential (primary) hypertension; G89.29 Other chronic pain; K59.03 Drug induced constipation; G47.00 Insomnia, unspecified; T40.2X5A Adverse effect of other opioids, initial encounter; Z90.710 Acquired absence of both cervix and uterus; Z88.0 Allergy status to penicillin; Z88.8 Allergy status to other drugs, medicaments and biological substances; Z79.891 Long term (current) use of opiate analgesic; Z90.49 Acquired absence of other specified parts of digestive tract; Z87.891 Personal history of nicotine dependence; Y92.89 Other specified places as the place of occurrence of the external cause; Z79.52 Long term (current) use of systemic steroids; Z98.42 Cataract extraction status, left eye; Z98.41 Cataract extraction status, right eye
CPT/HCPCS: 36415; 71045; 71046; 71275; 80048; 80053; 80076; 82947; 83690; 83880; 84484; 85007; 85025; 93005; 93306; 94640; 96374; J0456; J1815; J1940; J2212; J2930; J7620; Q0163; Q9967; 97110; 97116; 97530; 97535; 99285-25; J7030

== ENCOUNTER → 2019-06-06 | Outpatient (CLI) | payer MEDICARE ==
[~2019-06-06] MED LIST changes: -ALBU18HF IH; +ALBU2.5V8 IH; +DILT120C99 PO; +DOCU-109 PO; +DOXY100T PO; +HYDR-2869 PO; +HYDR12.58 PO; +HYDR25TA PO; +IPRA3AMP29 NEB; +OXYC1TAB15 PO; +POLY17PO5 PO; +PRED-220 PO; +TIOT4MIS3 IH
--- NOTE | 2019-06-06 16:27 | RAD ---
STUDY: Ultrasound duplex lower extremity arterial left INDICATION: Left leg pain. Evaluate for femoral artery aneurysm. COMPARISON: None. TECHNIQUE: Duplex sonographic evaluation of the left lower extremity arteries. FINDINGS: Peak systolic velocity measurements and waveform analysis from the left common femoral vein to the lower leg. Grayscale imaging of the vessels was performed as well. Triphasic waveform within the common femoral artery with peak systolic velocity of 81 cm/s. Biphasic waveform within the deep femoral artery with a peak systolic velocity of 50 cm/s. Biphasic waveform of the proximal and mid superficial femoral artery with peak systolic velocity measurements of 96 cm/s and 85 cm/s, respectively. Increased peak systolic velocity within the popliteal artery at 123 cm/s with biphasic waveform. Biphasic waveform throughout the proximal posterior tibial artery, distal posterior tibial artery, peroneal artery, anterior tibial artery and deep peroneal artery with peak systolic velocities of 103 cm/s, 128 cm/s, 53 cm/s, 35 cm/s and 28 cm/s, respectively. Multifocal atheromatous plaque scattered throughout the entirety of the visualized arteries. IMPRESSION: Triphasic and biphasic waveforms seen throughout the left lower extremity arteries from the common femoral artery through the distal lower leg on a background of multifocal atheromatous plaque. Increased peak systolic velocity within the popliteal artery of 123 cm/s relative to the distal superficial femoral artery of 46 cm/s representing a peak systolic velocity ratio of approximately 2.7. This is suggestive of an approximate 50 percent stenosis in this region. No significant stenosis appreciated elsewhere. Electronically signed by: LANE FRIAS MD (06/06/2019 4:24 PM) [id number]
== END | disposition home or self-care (01) ==
LOC: US 14:59
PROVIDERS: ATTEND Family Medicine
DX: I70.202 Unspecified atherosclerosis of native arteries of extremities, left leg (principal)
CPT/HCPCS: 93926

== ENCOUNTER → 2020-01-31 | Outpatient (CLI) | payer MEDICARE ==
--- NOTE | 2020-02-01 08:39 | RAD ---
Whole body bone scan Clinical indications: History of arthritis. Patient takes pain medication to control arthritis pain. History of compression fracture in 2016. Abnormal lab work. COMPARISON: No previous bone scan available. TECHNIQUE: After IV infusion of 25 mCi of Tc 99m MDP, delayed anterior and posterior planar images of the whole body were performed. FINDINGS: Bilateral renal function is evident. There are 2 adjacent foci of activity involving the posterior lateral aspect of the right ninth and 10th ribs consistent with rib fractures. There is abnormal activity involving the costovertebral junction on the right side at the T9 and T10 and T11 levels which may be due to fractures here as well. Activity is seen involving both elbows and both wrists and interphalangeal joints of both hands and metacarpal phalangeal joints of both hands especially the third metacarpal phalangeal joint of the left hand consistent with arthritis. There is degenerative arthritic activity involving the glenohumeral joint and AC joint of both shoulders. There is degenerative arthritic activity seen involving both knees especially the medial compartment on the right side. There is the degenerative arthritic activity seen involving the tarsal metatarsal joints of both feet and the first metatarsal phalangeal joints of both feet especially the first metatarsal phalangeal joint of the right foot. There is mild degenerative arthritic activity seen involving both ankles. There is intense uptake involving the left hip joint without photopenia. Therefore, this most likely represents degenerative osteoarthritis rather than avascular necrosis. This may be further evaluated with a radiographic study. There is intense uptake involving the right sternoclavicular joint consistent with severe osteoarthritis of the sternoclavicular joint. This could be related to trauma as well. Clinical correlation of this area is recommended. There is less prominent mild degenerative arthritic activity involving the left sternoclavicular joint. There is mild activity seen involving the left side of the mandible which may related to dental disease. There is no pattern of uptake to indicate osseous metastatic disease. IMPRESSION: No pattern of uptake to indicate osseous metastatic disease. Right rib cage fractures including the costovertebral junction of T9 and T10 and T11. Severe activity involving the right sternoclavicular joint and the left hip joint. Clinical correlation is recommended. Electronically signed by: Collins Hayden MD (02/01/2020 8:36 AM) [id number]
== END | disposition home or self-care (01) ==
LOC: NM 10:13
PROVIDERS: ATTEND Family Medicine
DX: S22.41XA Multiple fractures of ribs, right side, initial encounter for closed fracture (principal); M13.822 Other specified arthritis, left elbow; M13.831 Other specified arthritis, right wrist; M13.832 Other specified arthritis, left wrist; M13.821 Other specified arthritis, right elbow; R79.9 Abnormal finding of blood chemistry, unspecified; X58.XXXA Exposure to other specified factors, initial encounter; Y93.89 Activity, other specified; Y92.89 Other specified places as the place of occurrence of the external cause; Y99.8 Other external cause status
CPT/HCPCS: 78306; A9503

== ENCOUNTER 2020-12-25 14:22 | Emergency (ER) | payer MEDICARE ==
[~2020-12-25] VITALS: Ht 149.9 cm; Wt 56.8 kg
[2020-12-25] MEDS ORDERED: KETOROLAC 60 MG/2 ML VIAL. IM ONE (15:00)
[2020-12-25] MEDS ORDERED: DEXAMETHASONE SOD PHOS 10 MG/ML VIAL. PO ONE (15:00)
[2020-12-25] MEDS ORDERED: LIDOCAINE (700MG/PATCH) PATCH. TD SCH (15:15)
[2020-12-25] MEDS ORDERED: METHOCARBAMOL 500 MG TABLET PO ONE (15:30)
--- NOTE | 2020-12-25 16:00 | RAD ---
EXAMINATION: CT pelvis without IV contrast. INDICATION:85 years, Female, bilateral hip and back pain. TECHNIQUE: Axial CT images of the pelvis were obtained. Coronal and sagittal reformatted performed. COMPARISON: None. Exposure: One or more of the following individualized dose reduction techniques were utilized for thi s examination: 1. Automated exposure control 2. Adjustment of the mA and/or kV according to patient size 3. Use of iterative reconstruction technique. FINDINGS: Within limitation of noncontrast exam, Visualized liver, and gallbladder are unremarkable. No hydronephrosis in either kidney. There is a 4 mm cortical calcification versus nonobstructing calculus in the interpolar right kidney. Extensive co lonic diverticulosis without diverticulitis. No bowel dilation. Wall thickening of the sigmoid colon without significant fat stranding, likely secondary to diverticular disease. No pneumoperitoneum or a scites. No lymphadenopathy in the abdomen by size criteria. Incompletely imaged infrarenal abdominal aortic aneurysm measures 5.5 x 5.3 cm. Moderate to severe atherosclerotic calcifications of the iliac arteries without dilation. Findings of pelvic floor insufficiency with descendent urinary bladder an d anorectal junction. Urinary bladder is unremarkable. No suspicious pelvic masses. MUSCULOSKELETAL: Postsurgical changes along the anterior abdominal wall with scarring and calcifications. Suprapubic f at-containing abdominal wall hernia. Diffuse osteopenia. No acute fracture or or suspicious osseous l esion. Severe osteoarthritis of the left hip with lateral subluxation, severe joint space narrowing, subchondral sclerosis/cystic changes and osteophytes. There appears to be a complex fluid seen within the left hip joint space, may represent a chronic synovitis. Mild osteoarthritis of the right hip. S evere degenerative changes in the lower lumbar spine with grade 1 anterolisthesis of L5 over S1. Mild compression deformity of L4 and L5 vertebral bodies, likely chronic. IMPRESSION: 1. Chronic appearing mild compression deformity of L4 and L5 vertebral bodies. Correlate with point o f tenderness. 2. 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 3. Partially imaged infrarenal abdominal aortic aneurysm measures up to 5.5 cm. Vascular consultation is recommended. 4. Other chronic/incidental findings, as described above. Electronically signed by: Caroline Vogel MD (12/25/2020 3:57 PM) [id number]
[2020-12-25 16:12] VITALS: BP 166/94
[2020-12-25] MEDS ORDERED: METH-560 PO (16:13)
--- NOTE | 2020-12-25 16:13 | PHYS DOC ---
Past History Past Medical History: COPD, Hypertension, Other Additional Past Medical Histor: neuropathy Past Surgical History: Appendectomy, Hysterectomy, Other Additional Past Surgical Histo: multiple hernia surgeries Alcohol Use: None Drug Use: None Adult General Chief Complaint Chief Complaint: LOWER EXT PAIN [facility] HPI Patient is an 85-year-old female with a past medical history of severe osteoarthritis who presents to the emergency room complaining of bilateral leg pain that extends from her posterior hip down her legs into her toes. She states she has had pain like this for years but it is progressively gotten worse and became unbearable yesterday. She states that she was unable to sleep. She has been taking her oxycodone as prescribed but states it does not seem to be helping. She took some Tylenol last night without any relief. She denies any numbness or weakness in her legs. She does not have any new bowel or bladder incontinence or retention. Review of Systems Review of Systems Complete ROS is negative unless otherwise documented in HPI Current Medications Current Medications Current Medications Medications (Trade) Dose Ordered Sig/Thalia Start Time Stop Time Status Last Admin Dose Admin Dexamethasone Sodium Phosphate (Decadron) 10 mg 1X ONCE 12/25/20 15:00 12/25/20 15:13 DC 12/25/20 15:38 10 MG Ketorolac Tromethamine (Toradol Im) 60 mg 1X ONCE 12/25/20 15:00 12/25/20 15:13 DC 12/25/20 15:39 60 MG Lidocaine (Lidoderm) 1 patch DAILY 12/25/20 15:15 12/25/20 15:39 1 PATCH Methocarbamol (Robaxin) 1,000 mg 1X ONCE 12/25/20 15:30 12/25/20 15:31 DC 12/25/20 15:47 1,000 MG Miscellaneous (Lidoderm Patch Removal) 1 ea QHS 12/25/20 21:00 Allergies Allergies Allergies Coded Allergies Type Severity Reaction Last Updated Verified Penicillins Allergy Intermediate 09/14/17 Yes Fvuwmjr-Jon-Rfa Reductase Inhibitor Allergy Intermediate 09/15/17 Yes gabapentin Allergy Intermediate 09/15/17 Yes mannitol Allergy Intermediate 09/15/17 Yes tramadol Allergy Intermediate 09/15/17 Yes water for injection,sterile Allergy Intermediate 09/15/17 Yes zoledronic acid Allergy Intermediate 09/15/17 Yes Physical Exam Physical Exam General: Awake, alert, NAD. Well Nourished, well hydrated. Cooperative HEENT: Atraumatic, EOMI, PERRL, airway patent, moist oral mucosa Neck: Supple, trachea midline Respiratory: CTA bilaterally, normal effort, no wheezing/crackles CV: RRR, no murmur, cap refill <2 GI: Soft, nondistended, nontender, no masses MSK: No obvious deformities Skin: Warm, dry, intact Neuro: A&O x3, speech NL, sensory and motor grossly intact, no focal deficits Psych: Normal affect, normal mood, not suicidal or homicidal Current Patient Data Vital Signs Vital Signs Date Time Temp Pulse Resp B/P (MAP) Pulse Ox O2 Delivery O2 Flow Rate FiO2 12/25/20 14:39 98.1 96 18 161/98 (119) 98 Room Air EKG EKG [] Radiology/Procedures Radiology/Procedures [] Heart Score C/O Chest Pain: N/A Risk Factors: Risk Factors: DM, Current or recent (<one month) smoker, HTN, HLP, family history of CAD, obesity. Risk Scores: Risk Factors: DM, Current or recent (<one month) smoker, HTN, HLP, family history of CAD, obesity. Course & Med Decision Making Course & Med Decision Making Pertinent Labs and Imaging studies reviewed. (See chart for details) Patient is an 85-year-old female with a past medical history of severe osteoarthritis who presents to the emergency room complaining of bilateral hip pain with radiation into the legs. Patient's symptoms are most consistent with sciatica. CT of the lumbar spine and pelvis were done without any new findings. She does have severe osteopenia and osteoarthritis. She will be treated symptomatically here in the emergency room. She does not have any concerning symptoms for cauda equina or a spinal abscess. Patient is feeling better after some symptomatic relief. I have discussed with her that she should follow-up with her doctor about her narcotics. Patient's test results and vitals while in the ED were fully reviewed and discussed with the patient. Patient is stable and at this time does not need admission to the hospital. We have discussed strict return precautions and the importance of following up with their Primary Care Physician. Patient stated understanding and was given an opportunity to ask any questions. Patient is in agreement with plan. Dragon Disclaimer Dragon Disclaimer This electronic medical record was generated, in whole or in part, using a voice recognition dictation system. Departure Departure: Impression: Primary Impression: Sciatica Disposition: HOME / SELF CARE / HOMELESS Condition: STABLE Referrals: ADEBAYO MACDONALD MD (PCP) Patient Instructions: Sciatica Scripts Methocarbamol (METHOCARBAMOL) 750 Mg Tablet 750 MG PO TID PRN for PAIN for 10 Days, #30 TAB Prov: LUCIE GRAVES MD 12/25/20 LUCIE GRAVES MD Dec 25, 2020 16:13
[2020-12-25] MEDS ORDERED: oxyCODONE IR 5 MG TABLET PO PRN (16:15)
[2020-12-25] MEDS ORDERED: PATCH REMOVAL. MC SCH (21:00)
== END 2020-12-25 16:16 | disposition home or self-care (01) ==
LOC: ER 14:22
DX: M54.32 Sciatica, left side (principal); M54.31 Sciatica, right side; M16.0 Bilateral primary osteoarthritis of hip; J44.9 Chronic obstructive pulmonary disease, unspecified; I10 Essential (primary) hypertension; Z88.0 Allergy status to penicillin; Z88.8 Allergy status to other drugs, medicaments and biological substances; Z88.6 Allergy status to analgesic agent
CPT/HCPCS: 72192; 96372; 99284; J1100; J1885

== ENCOUNTER 2021-09-30 16:12 | Emergency (ER) | payer MEDICARE ==
[~2021-09-30] VITALS: Ht 149.9 cm; Wt 56.8 kg
[~2021-09-30 16:12] MED LIST changes: -DOXY100C2 PO; +DOXY100C3 PO; +METH-560 PO
--- NOTE | 2021-09-30 16:16 | PHYS DOC ---
Past History Past Medical History: COPD, Hypertension, Other Additional Past Medical Histor: neuropathy Past Surgical History: Appendectomy, Hysterectomy, Other Additional Past Surgical Histo: multiple hernia surgeries Alcohol Use: None Drug Use: None General Adult HPI: HPI: Patient is an 86 year old female brought in by private vehilcle, by her son, for evaluation of multiple complaints. The patient reports that she fell several days ago. She reports that she has pain all over her entire body. She reports that she does not believe she hit her head. She denies loss of consciousness. She reports that she has pain in both arms and both legs. She does have some more severe pain in her right hip. She also reports left upper quadrant and mid upper abdominal pain. She denies chest pain. She has chronic dyspnea, which is unchanged. She has a chronic cough which is unchanged. No acute sputum changes hemoptysis reported. She has COPD and is supposed to wear oxygen continuously. She arrives with an empty oxygen time, and she is hypoxic on arrival. After she is placed back on her 2 L per nasal cannula, she is saturating in the mid 90s. She quit smoking about 5 years ago. She usually ambulates with a walker. She lives with her son. The patient reports that she thinks she only fell once, several days ago, but she has multiple bruises on various parts of her body, in various stages of healing. She adamantly denies any abuse at home. She reports that she has not been eating and drinking as much recently in the last few days because she has felt so poorly. She is overall relatively poor historian, review of systems is somewhat limited secondary to this. The patient seems confused, repeats herself frequently. The patient son reports that this has happened before, and he has noticed increased confusion progressing over the last several months. The patient and her son both admit that they do not feel that she should live at home any longer, she is unable to care for herself. Review of Systems: Review of Systems: As per HPI. Allergies: Allergies: Allergies Coded Allergies Type Severity Reaction Last Updated Verified Penicillins Allergy Intermediate 09/14/17 Yes Zumjuhz-Dxx-Qfc Reductase Inhibitor Allergy Intermediate 09/15/17 Yes gabapentin Allergy Intermediate 09/15/17 Yes mannitol Allergy Intermediate 09/15/17 Yes tramadol Allergy Intermediate 09/15/17 Yes water for injection,sterile Allergy Intermediate 09/15/17 Yes zoledronic acid Allergy Intermediate 09/15/17 Yes Physical Exam: PE: Constitutional: Frail, chronically ill-appearing, somewhat disheveled, nontoxic HENT: Normocephalic, atraumatic, oropharynx is patent and clear. Mucous membranes are dry. No evidence of acute facial or oral trauma. No dental trauma Eyes: PERRL, EOMI, conjunctiva normal, no discharge. No nystagmus. No pedal edema, ecchymosis or erythema Neck: Normal range of motion, no tenderness, supple, no stridor. No midline tenderness or step-offs. No visible evidence of trauma. Cardiovascular:Heart rate regular rhythm, +2 radial and +2 dorsalis pedis pulses bilaterally Lungs & Thorax: Mild tachypnea. Scattered rhonchi that clear with coughing. No wheezing or stridor. No retractions. Speaks in full sentences. No cyanosis. Abdomen: Abdomen is mildly distended, soft, epigastric and left upper quadrant tenderness to palpation. Mild voluntary guarding. No rebound tenderness. No palpable pulsatile mass. Normal bowel sounds. No CVA tenderness. No abdominal or flank ecchymoses are noted Skin: She has multiple contusions. She has a large contusions of her left shoulder, right deltoid area, small superficial skin avulsion of her right forearm, she has a large area of soft tissue swelling and contusion of her left ankle. Multiple contusions of her first, second, third and fourth digits of both feet. She has a superficial wound abrasion of her anterior right knee. She has a healing contusion of her left thigh. She has a small contusion of her right lateral hip area. Back: Markedly limited range of motion. Kyphosis. No obvious acute deformity. No midline tenderness or step-offs. Extremities: Bilateral lower extremity edema. Pelvis is stable. Right lateral hip tenderness to palpation. Painful active and passive range of motion of the right hip. Circumferential ecchymosis and soft tissue swelling of the left ankle. Contusions and soft tissue swelling of the digits of both feet. Superficial abrasions of the dorsum of the right foot. Superficial abrasion of the right anterior knee. Neurologic: She is awake, alert, oriented x3. Cranial nerves II through XII grossly intact. She manifests diffuse, generalized nonfocal motor weakness. She moves all 4 extremities equally. Sensation is grossly intact. She does repeat herself frequently, has to be redirected frequently. Speech is fluent. Psychologic: Affect is anxious. She is cooperative. EKG: EKG: EKG is interpreted at 1641 Rhythm is sinus tachycardia Rate is 110 bpm Thompson is normal No STEMI Radiology/Procedures: Radiology/Procedures: IMAGING REPORT Signed PATIENT: KELLI COBB ACCOUNT: [id number] : 1935 LOCATION: ER AGE: 86 SEX: F EXAM STATUS: REG ER ORD. PHYSICIAN: RACHEL HERNÁNDEZ DO REASON: dyspnea, hypoxia.FALL PROCEDURE: PELVIS XR EXAM OF ANKLE_LEFT 3V, XR CHEST 1V, XR PELVIS 1-2V, XR BILAT FEET 3 VIEWS Clinical History: Reason: dyspnea, hypoxia,FALL / Spl. Instructions: / History: One view chest: Technique: AP view of the chest was obtained at 09/30/2021 5:06 PM. Comparison: September 16, 2017. Findings: The cardiomediastinal silhouette is normal. The pulmonary vasculature is normal. Linear reticular opacities of the lungs was seen previously and is unchanged. Impression: Chronic pulmonary fibrosis. Stable appearance of the chest. End of impression One view pelvis: History: Pain AP view the pelvis was obtained. There is severe degenerative changes of the left hip with flattening of the left femoral head and pseudarthrosis. There is a horizontal lucency through the femoral neck. There is obscuration of the bony detail of the sacrum due to overlying bowel gas. Impression: 1. Severe degenerative changes of the left hip with flattening and pseudoarthrosis could be secondary to old osteonecrosis. 2. Horizontal lucency in the right femoral neck. This could be a nondisplaced fracture. Correlate with possible right hip pain. End of impression 2 views bilateral feet Limited two-view AP lateral views of the feet bilaterally There is gross osteopenia which limits sensitivity for possible nondisplaced fracture. There is bunion deformity with degenerative changes of the first metatarsophalangeal joints bilaterally. There is no fracture seen. IMPRESSION: No acute findings. 3 views left ankle: AP lateral oblique views There is minimal widening of the lateral mortise. There is soft tissue swelling over the lateral and medial malleolus. There is a round well corticated densities distal to the medial malleolus without a definite donor site. There is gross osteopenia which does limit sensitivity for possible nondisplaced fracture. IMPRESSION: 1. Irregularity the medial malleolus likely secondary to an old avulsion injury. Correlation with tenderness. 2. There is soft tissue swelling with minimal widening of the lateral mortise. Findings suggest ligamentous injury. 3. Gross osteopenia could be secondary to osteoporosis. Electronically signed by: Jose De Jesus Hooper III, MD (09/30/2021 5:25 PM) [id number] DICTATED AND SIGNED BY: JOSE DE JESUS HOOPER III, MD DATE: 09/30/211716 CC: ADEBAYO MACDONALD MD; RACHEL HERNÁNDEZ DO ~ IMAGING REPORT Signed PATIENT: KELLI COBB ACCOUNT: [id number] : 1935 LOCATION: ER AGE: 86 SEX: F EXAM STATUS: REG ER ORD. PHYSICIAN: RACHEL HERNÁNDEZ DO REASON: fall, weakness PROCEDURE: CT HEAD AND CERVICAL SPINE WO Exam: CT head and cervical spine INDICATION: Fall, weakness TECHNIQUE: Sequential axial images through the head and cervical spine were obtained without the administration of IV contrast. Exposure: One or more of the following in the visualized dose reduction techniques were utilized for this examination: 1. Automated exposure control 2. Adjustment of the MA and/or KV according to patient size 3. Use of iterative of reconstructive technique Comparisons: None FINDINGS: Head: No focal parenchymal lesion or hemorrhage is identified. There is no midline shift or sulcal effacement. Moderate patchy evidence in the periventricular white matter. No acute vascular territory infarction is identified. Garcia-white distinction is preserved. The ventricular system is within normal limits without compression hydrocephalus. The basal cisterns are well maintained. The visualized portions of the paranasal sinuses and mastoid air cells are well- pneumatized. No acute fractures. Cervical spine: Vertebral body heights are well-maintained. Fracture to the cervical spine is identified. No significant spondylotic change in the cervical spine. Visualized paraspinal soft tissues are unremarkable. IMPRESSION: 1. No acute intracranial abnormality. Moderate small vessel schema change, technically age indeterminate. 2. Negative CT C-spine for acute traumatic injury. Electronically signed by: Rosi aTm MD (09/30/2021 6:20 PM) ENRIQUEYADY DICTATED AND SIGNED BY: ROSI TAM MD DATE: 09/30/211814 CC: ADEBAYO MACDONALD MD; RACHEL HERNÁNDEZ DO ~ IMAGING REPORT Signed PATIENT: KELLI COBB ACCOUNT: [id number] : 1935 LOCATION: ER AGE: 86 SEX: F EXAM STATUS: REG ER ORD. PHYSICIAN: RACHEL HERNÁNDEZ DO REASON: fall, LUQ abd pain PROCEDURE: CT ABD PELV W/ IV CONTRST ONLY Exam: CT of abdomen and pelvis with contrast INDICATION: Fall, left upper quadrant abdominal pain TECHNIQUE: Sequential axial images through the abdomen and pelvis obtained following the administration of 60 mL of Isovue-370 IV contrast. Sagittal and coronal reformatted images were reconstructed from the axial data and reviewed. Exposure: One or more of the following in the visualized dose reduction techniques were utilized for this examination: 1. Automated exposure control 2. Adjustment of the MA and/or KV according to patient size 3. Use of iterative of reconstructive technique Comparisons: None FINDINGS: Heart size is normal. No pericardial effusion. Visualized lung bases are clear. No pleural effusion. Diffuse hepatic steatosis. Spleen, pancreas, gallbladder and adrenals are u nremarkable. No perinephric inflammation or hydronephrosis. No renal or ureteral calculi are identified. Several cystic lesions at the kidneys bilaterally which are incompletely characterized on this study. Bladder is partially distended and not well evaluated. Uterus is absent. No abnormal adnexal mass. Diverticulosis noted at the descending and sigmoid colon without evidence of acute diverticulitis. Moderate amount of stool noted in the colon. Appendix is nonidentified. There is a infrarenal abdominal aortic aneurysm measuring 5.9 cm in diameter. No enlarged intra-abdominal lymph nodes are identified. No suspicious osseous lesions or acute fractures. IMPRESSION: 1. No sequela of acute traumatic injury identified within the abdomen or pelvis. 2. Infrarenal abdominal aortic aneurysm measuring up to 5.9 cm in diameter. Electronically signed by: Rosi Tam MD (09/30/2021 6:28 PM) [facility] DICTATED AND SIGNED BY: ROSI TAM MD DATE: 09/30/211819 CC: ADEBAYO MACDONALD MD; RACHEL HERNÁNDEZ DO ~ Heart Score: C/O Chest Pain: No Risk Factors: Risk Factors: DM, Current or recent (<one month) smoker, HTN, HLP, family history of CAD, obesity. Risk Scores: Score 0 - 3: 2.5% MACE over next 6 weeks - Discharge Home Score 4 - 6: 20.3% MACE over next 6 weeks - Admit for Clinical Observation Score 7 - 10: 72.7% MACE over next 6 weeks - Early Invasive Strategies Course & Med Decision Making: Course & Med Decision Making Pertinent Labs and Imaging studies reviewed. (See chart for details) Patient is given IV fluids, IV fentanyl for pain. I have discussed the findings, differential diagnosis and plan of care with the patient and her son. I recommended hospitalization. She has an ability troponin level, she also does have an elevated CPK. Rhabdomyolysis may overnight be contributing to elevated troponin, in addition to some demand ischemia from hypoxia, as her oxygen tank was empty when they arrived. She has multiple chronic findings on imaging studies. Questionable right hip fracture, this is a nondisplaced fracture, though she is tender in this area. Most of her injuries likely appear to be soft tissue in nature. However, she is extremely weak, she manifests evidence of failure to thrive, she cannot be safely discharged home. She will be transferred to [facility], where she may receive further evaluation and treatment, she may require specialty consultation, such as cardiology or orthopedics. The patient is comfortable with the plan of care. She is accepted for admission by Dr. Sanchez. Melquiades Disclaimer: Melquiades Disclaimer: This electronic medical record was generated, in whole or in part, using a voice recognition dictation system. Departure Departure: Impression: Primary Impression: Multiple falls Additional Impressions: Generalized weakness Multiple contusions Closed right hip fracture Qualified Codes: S72.001A - Fracture of unspecified part of neck of right femur, initial encounter for closed fracture Failure to thrive in adult Chronic respiratory failure with hypoxia COPD (chronic obstructive pulmonary disease) Qualified Codes: J44.9 - Chronic obstructive pulmonary disease, unspecified Elevated troponin Rhabdomyolysis Qualified Codes: T79.6XXA - Traumatic ischemia of muscle, initial encounter Acute kidney injury Disposition: [facility] Admitting Physician: Other (Dr. Sanchez) Condition: GUARDED Referrals: ADEBAYO MACDONALD MD (PCP) RACHEL HERNÁNDEZ DO Sep 30, 2021 16:15
[2021-09-30] MEDS ORDERED: IV NORMAL SALINE 1,000ML 1,000 ML IV ONE (16:30)
[2021-09-30] MEDS ORDERED: IOHEXOL 300 MG/ML 75 ML VIAL. IV ONE (16:45)
[2021-09-30 17:03] LABS: BASO # 0.1 x10^3/uL (0.0-0.2); BASO % 1 % (0-3); EOS % 0 % (0-3); HEMATOCRIT 37.7 % (36.0-47.0); HEMOGLOBIN 12.3 g/dL (12.0-15.5); LYMPH # 0.8 x10^3/uL (1.0-4.8); LYMPH % 7 % (24-48); MEAN CORPUSCULAR HEMOGLOBIN 31 pg (25-35); MEAN CORPUSCULAR HGB CONC 33 g/dL (31-37); MEAN CORPUSCULAR VOLUME 96 fL (79-100); MONO # 0.8 x10^3/uL (0.0-1.1); MONO % 7 % (0-9); NEUT # 10.4 x10^3uL (1.8-7.7); NEUT % 86 % (31-73); PLATELET COUNT 239 x10^3/uL (140-400); RED BLOOD COUNT 3.95 x10^6/uL (3.50-5.40); RED CELL DISTRIBUTION WIDTH 15.2 % (11.5-14.5); WHITE BLOOD COUNT 12.1 x10^3/uL (4.0-11.0)
--- NOTE | 2021-09-30 17:27 | RAD ---
XR EXAM OF ANKLE_LEFT 3V, XR CHEST 1V, XR PELVIS 1-2V, XR BILAT FEET 3 VIEWS Clinical History: Reason: dyspnea, hypoxia,FALL / Spl. Instructions: / History: One view chest: Technique: AP view of the chest was obtained at 09/30/2021 5:06 PM. Comparison: September 16, 2017. Findings: The cardiomediastinal silhouette is normal. The pulmonary vasculature is normal. Linear reticular opa [place] of the lungs was seen previously and is unchanged. Impression: Chronic pulmonary fibrosis. Stable appearance of the chest. End of impression One view pelvis: History: Pain AP view the pelvis was obtained. There is severe degenerative changes of the left hip with flattening of the left femoral head and pse udarthrosis. There is a horizontal lucency through the femoral neck. There is obscuration of the bony detail of the sacrum due to overlying bowel gas. Impression: 1. Severe degenerative changes of the left hip with flattening and pseudoarthrosis could be secondary to old osteonecrosis. 2. Horizontal lucency in the right femoral neck. This could be a nondisplaced fracture. Correlate wit h possible right hip pain. End of impression 2 views bilateral feet Limited two-view AP lateral views of the feet bilaterally There is gross osteopenia which limits sensitivity for possible nondisplaced fracture. There is bunio n deformity with degenerative changes of the first metatarsophalangeal joints bilaterally. There is n o fracture seen. IMPRESSION: No acute findings. 3 views left ankle: AP lateral oblique views There is minimal widening of the lateral mortise. There is soft tissue swelling over the lateral and medial malleolus. There is a round well corticated densities distal to the medial malleolus without a definite donor site. There is gross osteopenia which does limit sensitivity for possible nondisplace d fracture. IMPRESSION: 1. Irregularity the medial malleolus likely secondary to an old avulsion injury. Correlation with tenderness. 2. There is soft tissue swelling with minimal widening of the lateral mortise. Findings suggest ligam entous injury. 3. Gross osteopenia could be secondary to osteoporosis. Electronically signed by: Drew Lamb III, MD (09/30/2021 5:25 PM) [id number]
[2021-09-30 17:51] LABS: CREATININE 1.4 mg/dL (0.6-1.0); GFR 35.7; POTASSIUM 4.1 mmol/L (3.5-5.1)
[2021-09-30 18:07] LABS: ALBUMIN 3.4 g/dL (3.4-5.0); ALBUMIN/GLOBULIN RATIO 0.9 (1.0-1.7); MAGNESIUM 2.5 mg/dL (1.8-2.4); PHOSPHORUS 5.6 mg/dL (2.6-4.7); TOTAL BILIRUBIN 0.3 mg/dL (0.2-1.0); TOTAL PROTEIN 7.3 g/dL (6.4-8.2)
--- NOTE | 2021-09-30 18:22 | RAD ---
Exam: CT head and cervical spine INDICATION: Fall, weakness TECHNIQUE: Sequential axial images through the head and cervical spine were obtained without the admi nistration of IV contrast. Exposure: One or more of the following in the visualized dose reduction techniques were utilized for this examination: 1. Automated exposure control 2. Adjustment of the MA and/or KV according to patient size 3. Use of iterative of reconstructive technique Comparisons: None FINDINGS: Head: No focal parenchymal lesion or hemorrhage is identified. There is no midline shift or sulcal effaceme nt. Moderate patchy evidence in the periventricular white matter. No acute vascular territory infarction is identified. Garcia-white distinction is preserved. The ventricular system is within normal limits without compression hydrocephalus. The basal cisterns are well maintained. The visualized portions of the paranasal sinuses and mastoid air cells are well-pneumatized. No acute fractures. Cervical spine: Vertebral body heights are well-maintained. Fracture to the cervical spine is identified. No significant spondylotic change in the cervical spine. Visualized paraspinal soft tissues are unremarkable. IMPRESSION: 1. No acute intracranial abnormality. Moderate small vessel schema change, technically age indetermi fatemeh. 2. Negative CT C-spine for acute traumatic injury. Electronically signed by: Rosi Freed MD (09/30/2021 6:20 PM) [facility]
--- NOTE | 2021-09-30 18:31 | RAD ---
Exam: CT of abdomen and pelvis with contrast INDICATION: Fall, left upper quadrant abdominal pain TECHNIQUE: Sequential axial images through the abdomen and pelvis obtained following the administrati on of 60 mL of Isovue-370 IV contrast. Sagittal and coronal reformatted images were reconstructed fro m the axial data and reviewed. Exposure: One or more of the following in the visualized dose reduction techniques were utilized for this examination: 1. Automated exposure control 2. Adjustment of the MA and/or KV according to patient size 3. Use of iterative of reconstructive technique Comparisons: None FINDINGS: Heart size is normal. No pericardial effusion. Visualized lung bases are clear. No pleural effusion. Diffuse hepatic steatosis. Spleen, pancreas, gallbladder and adrenals are unremarkable. No perinephric inflammation or hydronephrosis. No renal or ureteral calculi are identified. Several c ystic lesions at the kidneys bilaterally which are incompletely characterized on this study. Bladder is partially distended and not well evaluated. Uterus is absent. No abnormal adnexal mass. Diverticulosis noted at the descending and sigmoid colon without evidence of acute diverticulitis. Mo derate amount of stool noted in the colon. Appendix is nonidentified. There is a infrarenal abdominal aortic aneurysm measuring 5.9 cm in diameter. No enlarged intra-abdom inal lymph nodes are identified. No suspicious osseous lesions or acute fractures. IMPRESSION: 1. No sequela of acute traumatic injury identified within the abdomen or pelvis. 2. Infrarenal abdominal aortic aneurysm measuring up to 5.9 cm in diameter. Electronically signed by: Rosi Freed MD (09/30/2021 6:28 PM) [facility]
[2021-09-30 20:19] LABS: BACTERIA,URINE 0 /HPF (0-FEW); CLARITY,URINE CLEAR; COLOR,URINE YELLOW; GLUCOSE,URINE NEG (NEG); NITRITE,URINE NEG (NEG); RBC,URINE OCC /HPF (0-2); UROBILINOGEN,URINE 0.2 mg/dL (0.2 mg/dL); WBC,URINE 0 /HPF (0-4)
[2021-09-30 20:20] LABS: GRANULAR CASTS,URINE MOD /HPF; SQUAMOUS EPITHELIAL CELL,UR FEW /LPF
[2021-09-30 20:33] VITALS: BP 158/78
--- NOTE | 2021-09-30 22:16 | EKG ---
[address] [address] Test Date: 2021-09-30 Test Time: 16:40:17 Pat Name: KELLI COBB Department: Room: Gender: F Patternmaker: ABEL : [id number] Requested By: RACHEL HERNÁNDEZ Order Number: [id number] Reading MD: Measurements Intervals [place] Rate: 110 P: 55 MI: 144 QRS: 16 QRSD: 90 T: 42 QT: 320 QTc: 438 Interpretive Statements SINUS TACHYCARDIA ATRIAL PREMATURE COMPLEX(ES) OTHERWISE NORMAL ECG RI6.02 No previous ECG available for comparison
== END 2021-09-30 21:43 | disposition short-term general hospital (02) ==
LOC: ER 16:12
DX: S72.001A Fracture of unspecified part of neck of right femur, initial encounter for closed fracture (principal); T79.6XXA Traumatic ischemia of muscle, initial encounter; S40.012A Contusion of left shoulder, initial encounter; S90.112A Contusion of left great toe without damage to nail, initial encounter; S90.111A Contusion of right great toe without damage to nail, initial encounter; S90.122A Contusion of left lesser toe(s) without damage to nail, initial encounter; S90.121A Contusion of right lesser toe(s) without damage to nail, initial encounter; S70.12XA Contusion of left thigh, initial encounter; S51.801A Unspecified open wound of right forearm, initial encounter; S80.211A Abrasion, right knee, initial encounter; J96.11 Chronic respiratory failure with hypoxia; J44.9 Chronic obstructive pulmonary disease, unspecified; N17.9 Acute kidney failure, unspecified; R77.8 Other specified abnormalities of plasma proteins; R53.1 Weakness; R62.7 Adult failure to thrive; I10 Essential (primary) hypertension; Z68.25 Body mass index [BMI] 25.0-25.9, adult; Z88.0 Allergy status to penicillin; Z88.8 Allergy status to other drugs, medicaments and biological substances; R29.6 Repeated falls; W18.39XA Other fall on same level, initial encounter; Y93.89 Activity, other specified; Y92.89 Other specified places as the place of occurrence of the external cause; Y99.8 Other external cause status
CPT/HCPCS: 36415; 51702; 70450; 71045; 72125; 72170; 73610; 73630; 74177; 80053; 81001; 82550; 83605; 83690; 83735; 84100; 84484; 85025; 85610; 85730; 93005; 96361; 96374; 96376; 99285; J3010; J7030; Q9967